=== PATIENT | female | born 1970 | race Caucasian/White ===

== ENCOUNTER 2019-07-31 08:08 | Emergency (ER) | payer BC, SELFPAY ==
--- NOTE | 2019-07-31 08:11 | W.ED.GENAD ---
Discharge Plan Disposition Patient Disposition: HOME Condition: Good Discharge Details Chief Complaint: Nk/Back Pain Clinical Impression: Muscle spasm, Back pain Primary Care Provider: Geno Harris ED Provider: Farheen Gutierrez Home Meds and New Rx's Prescriptions: New diazepam [Valium] 5 mg tablet 5 mg PO TID PRN (Reason: muscle spasm) Qty: 10 RF: 0 Continued loratadine 10 MG tablet 10 mg PO DAILY RF: 0 citalopram [Celexa] 40 mg tablet 60 mg PO DAILY Qty: 135 RF: 2 ibuprofen 400 MG tablet 600 mg PO Q4H PRN PRNRF: 0 Discharge Instructions Instructions: Muscle Spasm (ED), Back Pain (ED) Additional Instructions: Encourage water intake. Encourage gentle stretching and frequent walking. Continue with heat to help with discomfort. Please continue with [id number] patches such as Salonpas or Lidoderm patches. Please use 600 mg of ibuprofen and 1000 mg of Tylenol every 6 hours. You may augment this with the Valium as prescribed to help with muscle spasm. Do not take this medication while driving. Please follow-up with your primary care in the next few days for reevaluation. If you develop weakness, change in bowel or bladder habits, fevers, increased pain or other new/worsening symptoms please seek care urgently once again. Referrals: Geno Harris [Primary Care Provider] - Discharge Data Discharge Date/Time-TO BE ENTERED AT DEPARTURE: 07/31/19 09:15 Medical Decision Making Patient is a pleasant 49-year-old female presents today with chief complaint of right-sided back pain. She reports the pain began 4 days ago. She denies any inciting incident. No trauma. States the pain progressively increased. She has been trying to be more sedentary recently and has been using heating pads. She finds that pain is worse while sleeping and first thing in the morning. States that after being awake for several hours and using heating pad, the pain does start to subside. She denies any fevers or chills. Denies any altered sensation. Finds that rotations particularly to the right, increases pain. She denies any change in her bowel or bladder habits. Denies any fevers or chills. On exam, patient is resting comfortably. She has full rotation to the left, limited rotation to the right. She has palpable muscle spasm on the right side of her back. This is the area of discomfort. She has no midline tenderness. She has a normal neurologic exam. Negative straight leg raise bilaterally. Patient I discussed the findings. She has been being quite sedentary since the onset of discomfort which is likely contributing to her spasm. We did discuss this at length. Patient I discussed treatment options. In particular, advise a muscle relaxant. However, patient did drive herself here. I did offer to have been medicated here and have her obtain a ride home. However, patient would prefer to be discharged home with a prescription for muscle relaxer and will drive herself home. She will be given Tylenol, ibuprofen and a Lidoderm patch. I encouraged water intake. We discussed stretching techniques. Encouraged gentle range of motion and frequent ambulation. Encourage close follow-up with primary care. She was given strict return precautions. We did discuss using Valium safely. Do not drive will taking this medication. All of her questions and concerns were addressed and she is in agreement with this plan. [facility] General Mode of arrival: ambulatory. Date/Time Provider Initiated Documentation: 07/31/19 08:11. Limitations to Documentation: no limitations. Information obtained by: patient and RN notes reviewed. History of Present Illness 49 year old F presents to the emergency department with the chief complaint of right sided back pain, described as severe, with intensity rated at 10 (states pain is 4/10 when sedentary, 10/10 with movement). Quality is described as stabbing, and is localized to the back. Patient reports no radiation. Patient started experiencing this day(s) (4) and it has been constant. Immobilization improves symptom(s), (and heat) Movement worsens symptoms . Patient notes no other symptoms.. Patient did receive the following treatments prior to arrival, NSAID (400mg ibuprofen) Related Data Home Medications Medication Instructions Recorded Confirmed ibuprofen 600 mg PO Q4H PRN PRN 02/17/13 11/17/18 loratadine 10 mg PO DAILY tab-cap 08/06/15 11/17/18 citalopram 40 mg tablet 60 mg PO DAILY #135 tab 04/17/19 diazepam [Valium] 5 mg PO TID PRN #10 tab 07/31/19 Previous Rx's Medication Instructions Recorded citalopram 40 mg tablet 60 mg PO DAILY #135 tab 04/17/19 diazepam [Valium] 5 mg PO TID PRN #10 tab 07/31/19 Allergies Allergy/AdvReac Type Severity Reaction Status Date / Time No Known Drug Allergies Allergy Verified 07/31/19 08:16 Review of Systems Constitutional Constitutional: Reports as per HPI, Denies chills, Denies fatigue, Denies fever(s), Denies frequent falls and Denies headache(s) Eyes Eyes: Denies change in vision ENT Ears, Nose, Mouth, and Throat: Denies headache(s) Cardiovascular Cardiovascular: Denies chest pain, Denies dyspnea and Denies dyspnea on exertion Respiratory Respiratory: Denies cough, Denies dyspnea and Denies dyspnea on exertion Gastrointestinal Gastrointestinal: Denies abdominal pain, Denies change in bowel habits and Denies fecal incontinence Genitourinary Genitourinary: Reports as per HPI, Denies urinary incontinence and Denies urinary hesitancy Musculoskeletal Musculoskeletal: Reports as per HPI, Reports back pain, Denies muscle weakness, Denies numbness, Denies radiating pain into limb, Reports stiffness and Denies tingling Integumentary/Breasts Skin/Breast: Reports as per HPI and Denies rash Neurologic Neurologic: Reports as per HPI, Denies frequent falls, Denies headache(s), Denies focal weakness, Denies numbness, Denies radicular pain, Denies sensory deficit, Denies tingling and Denies paresthesias Endocrine Endocrine: Denies fatigue [facility] Medical History (Updated 07/31/19 @ 08:57 by KAYLEE Berrios) Anxiety (Chronic) Surgical History (Updated 03/30/18 @ 14:35 by [facility]) section Social History Smoking/Tobacco Use Status: Never Alcohol Intake: current Alcohol Intake frequency: a few times a month Drug use: Never Substance use type: does not use Do you feel safe at home: Yes Do you feel safe in your relationship?: Yes History History 2 Para 2 Hx # Term Pregnancies Multiple births Hx # Pregnancies Ectopic pregnancies AB induced Hx Number of Living Children AB spontaneous Exam Const General: cooperative, healthy appearing, uncomfortable, no acute distress, well developed and well groomed Nutritional Appearance: average body habitus and well nourished Orientation: alert and awake Eyes General: appearance normal, both eyes and all related structures Neck Neck: normal visual inspection, full ROM, no lymphadenopathy and no meningeal signs Resp Effort & Inspection: normal respiratory effort and able to speak in complete sentences Auscultation: clear to auscultation bilaterally, no rales, no rhonchi and no wheezes Cardio Rate: regular rate Rhythm: regular rhythm Heart Sounds: S1 normal and S2 normal Back/Spine/Pelvis Back: no CVA tenderness Cervical Spine: normal cervical lordosis, cervical ROM normal, No cervical spinal tenderness and No step off deformity Thoracic/Lumbar Spine: No thoraco-lumbar ROM normal (Full forward flexion. She is able to extend but has discomfort on the righ), straight leg raise negative bilaterally, No mass, No paraspinal tenderness, thoraco-lumbar ROM limited (With rotation to the right), thoraco-lumbar spasm, No thoracic spinal tenderness and No lumbar spinal tenderness Back/spine/pelvis image: 1. Area of palpable spasm Skin General skin exam: no rashes or lesions noted Neuro General: alert and awake Cognition: normal cognition Speech: speech normal Gait: normal gait Motor: muscle tone normal throughout, strength 5/5 throughout, no movement abnormalities noted and no fasciculations Sensory Exam: no sensory deficits noted (no saddle paresthesias) DTR's: Rt Patellar: 2+, Lt Patellar: 2+, Rt Ankle: 2+ and Lt Ankle: 2+ Extrem General: normal to inspection, full ROM, normal capillary refill, no joint enlargement, no pedal edema, no calf tenderness and normal gait Psych Appearance: grossly normal and well kempt Mental Status: mental status grossly normal Speech and Movement: speech and movement normal
[2019-07-31 08:14] VITALS: BP 132/91; PULSE 61; RESP 18; TEMP 36.4; O2SAT 100
[2019-07-31] MEDS: Lidocaine 5% Patch 1 PATCH TP (08:41)
[2019-07-31] MEDS: Ibuprofen 200 MG TAB PO (08:42)
[2019-07-31] MEDS: Acetaminophen 500 MG TAB 1000 MG PO (08:42)
== END 2019-07-31 09:15 | disposition home or self-care (01) ==
PROVIDERS: Emergency Provider Physician Assistant; PCP Nurse Practitioner Family
DX: M62.830 Muscle spasm of back (principal); M54.9 Dorsalgia, unspecified
CPT/HCPCS: 99283

== ENCOUNTER 2019-11-27 01:26 | Outpatient (CLI) | payer BC, SELFPAY ==
--- NOTE | 2019-11-27 15:30 | DI.MAMMO_ITS ---
EXAM: MAMMO SCREENING CLINICAL HISTORY: screening TECHNIQUE: Mammograms were interpreted according to the usual protocol including computer analysis w Shortlist CAD system, tomosynthesis and C-view imaging. COMPARISON: 2010 through 2016 FINDINGS: The breasts are composed of heterogeneously dense fibroglandular densities, Breast Density category C . Right breast: No suspicious masses or suspicious microcalcifications are seen. No skin thickening or abnormal axillary lymph nodes are seen. There has been no significant change from prior exams. Left breast: There is an ovoid circumscribed area of nodular asymmetry seen on the CC view in the darnell tral left breast not definitely seen previously. There are no suspicious calcifications or portal architect ural distortion. Spot compression views and ultrasound are requested for further evaluation. IMPRESSION: BI-RADS Category 0 - Assessment Incomplete: Need additional imaging evaluation Breast density category C, heterogeneously dense tissue which decreases the sensitivity of the mammog kobi. The mammogram demonstrates the patient's breast tissue is dense. Dense breast tissue is very common a nd is not abnormal but dense breast tissue can make it harder to find cancer on a mammogram. Also, de nse breast tissue may increase breast cancer risk. This information about the result of the mammogram report was provided to the patient to raise their awareness. Use this report when you speak with the patient about their risks for breast cancer, which includes their family history. At that time, you may recommend additional screening tests (Ultrasound or MRI) as they might be useful based on their r isk. A negative radiographic report should not delay biopsy if a dominant or clinically suspicious mass is present. Up to ten percent of cancers are not identified on mammography. A negative report may reinforce clinical impression. Adenosis and dense breasts may obscure an underlying neoplasm. False positive reports average 6 to 10%.
== END 2019-11-27 01:46 ==
PROVIDERS: PCP Nurse Practitioner Family; Visit Provider Nurse Practitioner Family
DX: Z12.31 Encounter for screening mammogram for malignant neoplasm of breast (principal); R92.8 Other abnormal and inconclusive findings on diagnostic imaging of breast
CPT/HCPCS: 77063; 77067

== ENCOUNTER 2019-12-01 03:03 | Outpatient (CLI) | payer BC, SELFPAY ==
--- NOTE | 2019-12-01 15:02 | DI.MAMMO_ITS ---
EXAM: MG MAMMO SCREEN CALL BACK UNI CLINICAL HISTORY: F/U ABNORMAL MAMMO, OVOID CIRCUMSCRIBED AREA OF NODULAR ASYMMETRY IN CENTRAL LEFT BREAST TECHNIQUE: Spot compression CC and MLO views with tomosynthesis were performed. COMPARISON: 2010 through November,. FINDINGS: Masses/Architectural Distortion: None seen. No suspicious area of nodularity persists. Microcalcifications: No suspicious pleomorphic-type are seen. Skin Thickening/Nipple Retraction: None. IMPRESSION: 1. No significant interval change with no specific features of malignancy noted. 2. Unless there is more urgent need, screening mammography is recommended, as per [employer] guidelines. BI-RADS Category 1 - Negative Breast Density - Category C - Heterogeneously dense The mammogram demonstrates the patient's breast tissue is dense. Dense breast tissue is very common a nd is not abnormal but dense breast tissue can make it harder to find cancer on a mammogram. Also, de nse breast tissue may increase their breast cancer risk. This information about the result of the [facility] mogram report was provided to the patient to raise their awareness. Use this report when you speak wi th the patient about their risks for breast cancer, which includes their family history. At that time , you may recommend for more screening tests (Ultrasound or MRI) as they might be useful based on the ir risk. A negative radiographic report should not delay biopsy if a dominant or clinically suspicious mass is present. Up to ten percent of cancers are not identified on mammography. A negative report may reinforce clinical impression. Adenosis and dense breasts may obscure an underlying neoplasm. False positive reports average 6 to 10%. Patient will receive a letter notifying them of these results.
--- NOTE | 2019-12-01 15:10 | DI.US_ITS ---
EXAM: US BREAST LT LIMITED CLINICAL HISTORY: OVOID CIRCUMSCRIBED AREA OF NODULAR ASYMMETRY IN CENTRAL LEFT BREAST TECHNIQUE: Ultrasound left breast performed using standard protocol. COMPARISON: No exams were available for comparison FINDINGS: No solid or cystic masses, hypoechoic foci, areas of abnormal shadowing, or areas of skin thickening. IMPRESSION: No sonographically suspicious finding. DATA REPOSITORY:
== END 2019-12-01 03:23 ==
PROVIDERS: PCP Nurse Practitioner Family; Visit Provider Nurse Practitioner Family
DX: N63.25 Unspecified lump in the left breast, overlapping quadrants (principal); Z12.31 Encounter for screening mammogram for malignant neoplasm of breast; R92.8 Other abnormal and inconclusive findings on diagnostic imaging of breast
CPT/HCPCS: 76642; 77063; 77067

== ENCOUNTER 2020-11-25 14:10 | Outpatient (REF) | payer BC, SELFPAY ==
--- NOTE | 2020-11-25 13:45 | PAPFT_PTH ---
PATIENT: Cleopatra Thornton LOC: [facility] U#:[id number] AGE/SX: 50/F ROOM: RE11/25/[address]: SHEEBA Harvey : 1970 BED: DIS: 11/25/2020 SPEC #: [id number] RECD: 11/25/20 17:53 STATUS: STEVE REQ #: [id number] PATRIC: 11/25/20 13:[address]: Karissa Ahmadi DEPT: [facility] Cytology RECD BY: Sridevi Cedillo ENTERED: 11/25/20 17:53 SP TYPE: PAPFT OTHR DR: Geno Harris Tissues: 1 - CX/ENDOCX FOR PAP SMEARS Procedures: PAP THIN PREP/UVM Screening HPV DNA PROBE Comments: [id number]
== END 2020-11-25 14:11 | disposition home or self-care (01) ==
LOC: LBN 14:10
PROVIDERS: PCP Nurse Practitioner Family; Visit Provider Nurse Practitioner Family
DX: Z12.4 Encounter for screening for malignant neoplasm of cervix (principal); Z11.51 Encounter for screening for human papillomavirus (HPV)
CPT/HCPCS: 88142; 87624

== ENCOUNTER 2020-12-09 01:57 | Outpatient (CLI) | payer BC, SELFPAY ==
--- NOTE | 2020-12-09 09:30 | DI.MAMMO_ITS ---
Exam(s) MAMMO SCREENING EXAM: MAMMO SCREENING CLINICAL HISTORY: screening, Z12.39. TECHNIQUE: Bilateral full field digital CC and MLO mammographic images were obtained with 3D tomosyn thesis and utilizing computer aided detection (CAD). COMPARISON: Prior mammograms dating back to 2013, the most recent being November 2019. Left breast ultrasound November 2019 was also reviewed. FINDINGS: The fibroglandular tissue is moderately dense, this decreasing the sensitivity of the mammogram for f inding hidden underlying lesions. No new significant radiograph findings in the right breast In the left breast there is a round noncalcified nodular density noted is located 4 cm in from the ni pple on the CC view. On 3D imaging this appears to be a possible lymph node and this probably explai ns why was not visualized on prior ultrasound examination of November 2019. This nodule measures approximately 9 by 6 millimeters There are no malignant-appearing microcalcification groups in this region nor elsewhere in either jesús ast. There is no significant architectural distortion nor skin thickening-retraction. IMPRESSION: No radiographic evidence of malignancy in the right breast. There is a 9 x 6 millimeter left breast nodule which may be a benign lymph node. Recommend spot comp ression view and repeat left breast ultra sound at this time. BI-RADS Category 0 - Assessment Incomplete: Need additional imaging evaluation Breast Density - Category C - Heterogeneously dense Breast density Category C or D implies that the patient has dense breast tissue. Dense breast tissue can make it harder to find cancer on a mammogram. Dense breast tissue is also associated with an incr eased risk of breast cancer. This information about the result of the mammogram report was provided to the patient to raise their awareness. Use this report when you speak with the patient about their risks for breast cancer, which includes their family history. At that time, you may recommend additional screening tests (Ultrasoun d or MRI) as these tests may add significant information. A negative radiographic report should not delay biopsy if a dominant or clinically suspicious mass is present. Up to ten percent of cancers are not identified on mammography. A negative report may reinforce clinical impression. Adenosis and dense breasts may obscure an underlying neoplasm. False positive reports average 6 to 10%. Patient will receive a letter notifying them of these results.
== END 2020-12-09 02:17 ==
PROVIDERS: PCP Nurse Practitioner Family; Visit Provider Nurse Practitioner Family
DX: Z12.31 Encounter for screening mammogram for malignant neoplasm of breast (principal); N63.20 Unspecified lump in the left breast, unspecified quadrant
CPT/HCPCS: 77063; 77067

== ENCOUNTER 2020-12-25 02:04 | Outpatient (CLI) | payer BC, SELFPAY ==
--- NOTE | 2020-12-25 | DI.US_ITS ---
Exam(s) US BREAST LT COMPLETE EXAM: US BREAST LT COMPLETE CLINICAL HISTORY: F/U MAMMO, LT BREAST NODULE, ? LYMPH NODE. TECHNIQUE: Complete ultrasound of the left breast was performed including all 4 quadrants, the retro areolar region, and the ipsilateral axilla. COMPARISON: Prior mammograms were reviewed. Today's additional spot compression mammographic view of the left breast was also performed FINDINGS: There are 2 findings evident in the left breast on today's ultrasound. For sleep, date 1 o'clock position there is a 9 x 4 millimeter than taller slightly lobulated nodule with neutral through transmission have the appearance of a probable small fibroadenoma. Second finding has similar appearance and is located at the 5 o'clock position, measuring 8 x 3 melissa meters, also wider than taller and exhibiting slightly increased through transmission. No worrisome d ecreased through transmission. No other focal ultrasound findings in all 4 quadrants nor in the retroareolar region. In the left axilla there benign appearing lymph nodes noted. 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 One of these may correspond to the finding on the mammogram. The other possibility is that these are not seen on mammogram and that the finding on the mammogram is a benign should mammary lymph node (wh ich is often not able to be seen on ultrasound). Nevertheless, we are most probably dealing with benign findings here. Appropriate follow-up is repeat breast imaging in 6 months time, this to include repeat left breast d iagnostic mammogram and repeat ultrasound. At that time I recommend that she undergo ultrasound of gildardo th breasts given that fibroadenomas tend to be multiple and bilateral. BI-RADS Category 3 - 6 month - Probably Benign Finding: Recommend follow-up mammography in 6 months Breast Density - Category C - Heterogeneously dense Breast density Category C or D implies that the patient has dense breast tissue. Dense breast tissue can make it harder to find cancer on a mammogram. Dense breast tissue is also associated with an incr eased risk of breast cancer. This information about the result of the mammogram report was provided to the patient to raise their awareness. Use this report when you speak with the patient about their risks for breast cancer, which includes their family history. At that time, you may recommend additional screening tests (Ultrasoun d or MRI) as these tests may add significant information. A negative radiographic report should not delay biopsy if a dominant or clinically suspicious mass is present. Up to ten percent of cancers are not identified on mammography. A negative report may reinforce clinical impression. Adenosis and dense breasts may obscure an underlying neoplasm. False positive reports average 6 to 10%. Patient will receive a letter notifying them of these results.
--- NOTE | 2020-12-25 | DI.MAMMO_ITS ---
Exam(s) MG MAMMO SCREEN CALL BACK UNI EXAM: MG MAMMO SCREEN CALL BACK UNI LEFT AND COMPLETE LEFT BREAST ULTRASOUND CLINICAL HISTORY: F/U MAMMO, LT BREAST NODULAR DENSITY, ? LYMPH NODE. TECHNIQUE: Unilateral spot mammographic images were obtained with 3D tomosynthesis and utilizing com puter aided detection (CAD). . LEFT breast Ultrasound was also performed. We performed complete left breast ultrasound including all 4 quadrants as well as the retroareolar region and left axilla. COMPARISON: Prior mammograms were reviewed. This additional imaging was performed due to findings described on the recent screening mammogram of 12/09/2020. FINDINGS: Additional mammographic view performed today over the recently described nodule is equivocal..Therefo re we proceeded with left breast ultrasound. See separate ultrasound report. IMPRESSION: See separate ultrasound report Appropriate follow-up is repeat breast imaging in 6 months, this to include repeat left breast diagno stic mammogram and breast ultrasound. At that time the ultrasound examination should be a bilateral s tudy, for reasons described on the ultrasound report.. Findings are recommendations were discussed by myself with the patient today. BI-RADS Category 3 - 6 month - Probably Benign Finding: Recommend follow-up mammography in 6 months Breast Density - Category C - Heterogeneously dense Breast density Category C or D implies that the patient has dense breast tissue. Dense breast tissue can make it harder to find cancer on a mammogram. Dense breast tissue is also associated with an incr eased risk of breast cancer. This information about the result of the mammogram report was provided to the patient to raise their awareness. Use this report when you speak with the patient about their risks for breast cancer, which includes their family history. At that time, you may recommend additional screening tests (Ultrasoun d or MRI) as these tests may add significant information. A negative radiographic report should not delay biopsy if a dominant or clinically suspicious mass is present. Up to ten percent of cancers are not identified on mammography. A negative report may reinforce clinical impression. Adenosis and dense breasts may obscure an underlying neoplasm. False positive reports average 6 to 10%. Patient will receive a letter notifying them of these results.
== END 2020-12-25 02:24 ==
PROVIDERS: PCP Nurse Practitioner Family; Visit Provider Nurse Practitioner Family
DX: Z12.31 Encounter for screening mammogram for malignant neoplasm of breast (principal); R92.8 Other abnormal and inconclusive findings on diagnostic imaging of breast; N63.21 Unspecified lump in the left breast, upper outer quadrant
CPT/HCPCS: 76642; 77063; 77067

== ENCOUNTER 2021-01-03 09:44 | Emergency (ER) | payer BC, SELFPAY ==
[2021-01-03 09:48] VITALS: BP 140/99; PULSE 64; RESP 18; TEMP 36.4; O2SAT 100
--- NOTE | 2021-01-03 10:05 | W.ED.GENAD ---
Discharge Plan Disposition Patient Disposition: HOME Condition: Good Discharge Details Clinical Impression: Injury of knee, right Primary Care Provider: Geno Harris ED Provider: Sridevi Olmstead Home Meds and New Rx's Prescriptions: New diclofenac sodium 3 % gel 1 applic topical BID Qty: 100 RF: 0 Continued citalopram [Celexa] 40 mg tablet 60 mg PO DAILY Qty: 135 RF: 3 estradiol [Vagifem] 10 mcg tablet 10 mcg vaginal DAILY 14 Days Qty: 24 RF: 4 loratadine 10 MG tablet 10 mg PO DAILY RF: 0 ibuprofen 400 MG tablet 600 mg PO Q4H PRN PRNRF: 0 diazepam [Valium] 5 mg tablet 5 mg PO TID PRN (Reason: muscle spasm) Qty: 10 RF: 0 Discharge Instructions Additional Instructions: Please follow-up with your PCP in 1 week for reevaluation and orthopedic thereafter if you have persistent pain The calf pain or swelling, significant swelling to your knee, worsening discomfort, I recommend reevaluation Ibuprofen 600 mg every 8 hours with food for no more than 5 days as needed for pain Tylenol 650 mg every 4-6 hours as needed for discomfort Diclofenac gel topically Blood pressure recheck by primary care physician Hinged knee brace while awake Medical Decision Making Patient supplied with knee brace Ambulatory with antalgic steady gait Crutches in room Return precautions discussed and patient expressed understanding, I did not order an x-ray as there is no direct trauma to the affected knee obvious effusion No clinical evidence of DVT, neurovascularly intact Return precautions discussed and patient expressed understanding, referral to orthopedics back to primary care physician Mildly ibuprofen and Tylenol, diclofenac gel supplied Medical Records Medical records reviewed: Yes I reviewed the patient's medical records. HPI General Mode of arrival: ambulatory. Date/Time Provider Initiated Documentation: 01/03/21 09:45. Limitations to Documentation: no limitations. Information obtained by: patient. HPI Narrative: This 50-year-old female presents for right knee injury. She states she was holding a laundry basket, turned quickly and felt pain in her medial knee. She states that she has pain with flexion abducting. She denies any sensation changes. She denies any calf pain or swelling. Related Data Home Medications Medication Instructions Recorded Confirmed ibuprofen 600 mg PO Q4H PRN PRN 02/17/13 01/03/21 loratadine 10 mg PO DAILY tab-cap 08/06/15 01/03/21 diazepam [Valium] 5 mg PO TID PRN #10 tab 07/31/19 citalopram 40 mg tablet 60 mg PO DAILY #135 tab 11/25/20 01/03/21 estradiol 10 mcg vaginal tablet 10 mcg VAGINAL DAILY 14 Days #24 11/25/20 01/03/21 tab diclofenac sodium 1 applic TOPICAL BID #100 g 01/03/21 Previous Rx's Medication Instructions Recorded diazepam [Valium] 5 mg PO TID PRN #10 tab 07/31/19 citalopram 40 mg tablet 60 mg PO DAILY #135 tab 11/25/20 estradiol 10 mcg vaginal tablet 10 mcg VAGINAL DAILY 14 Days #24 11/25/20 tab diclofenac sodium 1 applic TOPICAL BID #100 g 01/03/21 Allergies Allergy/AdvReac Type Severity Reaction Status Date / Time No Known Drug Allergies Allergy Verified 01/03/21 09:52 General Stated Complaint: Orthopedic TONYA: 4 Review of Systems Narrative: Review of systems obtained x3 and negative aside from indication in HPI [facility] Medical History (Updated 01/03/21 @ 10:12 by KAYLEE Brown) Anxiety Surgical History (Updated 03/30/18 @ 14:35 by [employer] [place]) section Family History Mother Hyperlipidemia Father Hyperlipidemia Maternal Aunt Colon cancer Social History Smoking/Tobacco Use Status: Never Smoking risk assessment performed?: Yes Alcohol Intake: current Alcohol Intake frequency: a few times a month Drug use: Never Substance use type: does not use Do you feel safe at home: Yes Do you feel safe in your relationship?: Yes History History 2 Para 2 Hx # Term Pregnancies Multiple births Hx # Pregnancies Ectopic pregnancies AB induced Hx Number of Living Children AB spontaneous Exam Const General: healthy appearing Resp Effort & Inspection: normal respiratory effort Cardio Rate: regular rate Extrem Other: Right knee pain, medial, positive Kezia, no obvious effusion, no calf tenderness, distal pulses intact, sensation intact distally, no tenderness to ankle or right hip on the affected side Course Vital Signs Vital signs: Vital Signs Temperature 36.4 C L 01/03/21 09:48 Pulse 64 01/03/21 09:48 Respiratory Rate 18 01/03/21 09:48 Blood Pressure 140/99 H 01/03/21 09:48 Pulse Oximetry 100 01/03/21 09:48 Temperature 36.4 C L 01/03/21 09:48 Temperature Source Temporal Artery Scan 01/03/21 09:48 Pulse 64 01/03/21 09:48 Respiratory Rate 18 01/03/21 09:48 Respiratory Effort Non-Labored 01/03/21 09:54 Blood Pressure 140/99 H 01/03/21 09:48 Blood Pressure Position Sitting 01/03/21 09:48 Pulse Oximetry 100 01/03/21 09:48 Oxygen Delivery Method Room Air 01/03/21 09:48 Oxygen Flow Rate 0 01/03/21 09:48 Pain Level 0 01/03/21 09:48 Comment 01/03/21 09:48
== END 2021-01-03 10:23 | disposition home or self-care (01) ==
PROVIDERS: Emergency Provider Physician Assistant; PCP Nurse Practitioner Family
DX: S89.81XA Other specified injuries of right lower leg, initial encounter (principal); X50.9XXA Other and unspecified overexertion or strenuous movements or postures, initial encounter
CPT/HCPCS: 29505; 99283

== ENCOUNTER 2021-01-13 13:54 | Outpatient (CLI) | payer BC, SELFPAY ==
--- NOTE | 2021-01-13 11:00 | DI.RAD_ITS ---
Exam(s) XR KNEE RT 3V AP,LAT,CASSIDY EXAM: XR KNEE RT 3V AP,LAT,CASSIDY CLINICAL HISTORY: right knee injury. TECHNIQUE: 2D digital imaging was performed. COMPARISON: No exams were available for comparison FINDINGS: A small joint effusion. No narrowing of the joint compartments. However, on the sunrise view there are 2 small calcific densities seen in the medial aspect of the patellofemoral compartment. Bone den sity is normal. No osseous. IMPRESSION: There are 2 small calcific densities adjacent to each other behind the medial aspect of the patella. There is no patellar displacement evident. DATA REPOSITORY: RADIATION DOSE DELIVERED:
== END 2021-01-13 13:55 | disposition home or self-care (01) ==
LOC: DIORS 13:54
PROVIDERS: PCP Nurse Practitioner Family; Referring Provider Nurse Practitioner Family; Visit Provider Physician Assistant
DX: S89.91XA Unspecified injury of right lower leg, initial encounter (principal); M85.861 Other specified disorders of bone density and structure, right lower leg; X58.XXXA Exposure to other specified factors, initial encounter
CPT/HCPCS: 73562

== ENCOUNTER 2021-06-23 01:47 | Outpatient (CLI) | payer BC, SELFPAY ==
--- NOTE | 2021-06-23 08:30 | DI.US_ITS ---
Exam(s) US BREAST LT COMPLETE MG MAMMO DIAGNOSTIC UNI US BREAST RT COMPLETE EXAM: MG MAMMO DIAGNOSTIC UNI CLINICAL HISTORY: 6 mo f/u,r92.8. TECHNIQUE: Craniocaudal and mediolateral oblique Full Field Digital Mammography views of the left br east with Computer Aided Diagnosis followed by Tomosynthesis and bilateral breast ultrasound. COMPARISON: MG Screening Bilat Mammo from 10/06/2016 MG MG MAMMO SCREENING from 11/27/2019 MG MG MAMMO SCREEN CALL BACK UNI from 12/01/2019 MG MG MAMMO SCREENING from 12/09/2020 MG MG MAMMO SCREEN CALL BACK UNI from 12/25/2020 US US BREAST LT COMPLETE from 12/25/2020 US US BREAST RT COMPLETE from 06/23/2021 US US BREAST LT COMPLETE from 06/23/2021 FINDINGS: Left mammography/Tomosynthesis: Masses/Architectural Distortion: Stable circumscribed nodule superior central left breast.. Microcalcifictions: No suspicious pleomorphic-type are seen. Skin Thickening/Nipple Retraction: None. Right breast US: Echotexture: Normal appearance of the glandular tissue. Shadowing: No suspicious foci. Cyst: None. Solid lesions: None seen. Ductal dilation: None. Left breast ultrasound: Stable appearance circumscribed hypoechoic nodule 1 o'clock position 5 cm fro m nipple measuring 9 x 3 x 8 millimeters. Stable hypoechoic circumscribed nodule in the 5 o'clock po sition 3 cm from the nipple measuring 7 x 3 x 7 millimeters. No new or suspicious masses. IMPRESSION: 1. No evidence of malignancy is noted. Stable benign appearing nodules in the left breast, likely fib roadenomas. 2. Unless there is more urgent need, follow-up screening mammography is recommended, return to bilate ral screening in 6 months. BI-RADS Category 2 - Benign Findings Breast Density - Category C - Heterogeneously dense Breast density category C or D implies that the patient has dense breast tissue. Dense breast tissue is very common and is not abnormal but dense breast tissue can make it harder to find cancer on a ma mmogram. Also, dense breast tissue may increase their breast cancer risk. This information about the result of the mammogram report was provided to the patient to raise their awareness. Use this report when you speak with the patient about their risks for breast cancer, which includes their family hist ory. At that time, you may recommend for more screening tests (Ultrasound or MRI) as they might be us eful based on their risk. A negative radiographic report should not delay biopsy if a dominant or clinically suspicious mass is present. Up to ten percent of cancers are not identified on mammography. A negative report may reinforce clinical impression. Adenosis and dense breasts may obscure an underlying neoplasm. False positive reports average 6 to 10%. Patient will receive a letter notifying them of these results.
== END 2021-06-23 02:07 ==
PROVIDERS: PCP Nurse Practitioner Family; Visit Provider Nurse Practitioner Family
DX: R92.8 Other abnormal and inconclusive findings on diagnostic imaging of breast (principal); Z12.31 Encounter for screening mammogram for malignant neoplasm of breast; N63.21 Unspecified lump in the left breast, upper outer quadrant
CPT/HCPCS: 76642; 77061; 77065; G0279

== ENCOUNTER → 2022-02-23 02:33 | Outpatient (CLI) | payer BC, SELFPAY ==
--- NOTE | 2022-02-23 12:56 | DI.MAMMO_ITS ---
Exam(s) MAMMO SCREENING EXAM: MAMMO SCREENING CLINICAL HISTORY: screening. TECHNIQUE: Bilateral full field digital CC and MLO mammographic images were obtained with 3D tomosyn thesis and utilizing computer aided detection (CAD). COMPARISON: Prior mammograms were reviewed, the most recent being 1020 and June 2021. Ultrasound examinations of December 2020 and June 2021 were reviewed.. FINDINGS: There has no significant change in the appearance distribution of fibroglandular tissue which is mode rately dense. There are no new obvious spiculated masses nor malignant-appearing microcalcification in either breas t. No significant architectural distortion or skin thickening-traction. There are no new spiculated masses nor malignant appearing microcalcification groups. There is no significant architectural distortion nor skin thickening-retraction. IMPRESSION: No radiographic evidence of malignancy. I note that prior ultrasound examinations of the left breast revealed nodular densities-probable fibr oadenomas at the 3 o'clock and 6 o'clock positions which were evident on the December 2020 and July 03 studies. Recommend follow-up ultrasound in 6 months to ensure stability of the left breast findin gs which are somewhat hidden subjacent to the fibroglandular tissue on the mammogram. BI-RADS Category 3 - 6 month - Probably Benign Finding: Recommend follow-up mammography in 6 months Breast Density - Category B - Scattered areas of fibroglandular density Breast density Category C or D implies that the patient has dense breast tissue. Dense breast tissue can make it harder to find cancer on a mammogram. Dense breast tissue is also associated with an incr eased risk of breast cancer. This information about the result of the mammogram report was provided to the patient to raise their awareness. Use this report when you speak with the patient about their risks for breast cancer, which includes their family history. At that time, you may recommend additional screening tests (Ultrasoun d or MRI) as these tests may add significant information. A negative radiographic report should not delay biopsy if a dominant or clinically suspicious mass is present. Up to ten percent of cancers are not identified on mammography. A negative report may reinforce clinical impression. Adenosis and dense breasts may obscure an underlying neoplasm. False positive reports average 6 to 10%. Patient will receive a letter notifying them of these results.
== END ==
PROVIDERS: PCP Nurse Practitioner Family; Visit Provider Nurse Practitioner Family
DX: Z12.31 Encounter for screening mammogram for malignant neoplasm of breast (principal)
CPT/HCPCS: 77063; 77067

== ENCOUNTER 2022-06-27 17:26 | Emergency (ER) | payer BC, SELFPAY ==
--- NOTE | 2022-06-27 17:15 | RT.EKG_ITS ---
APPROVED REPORT Exam: Resting ECG Reason for Exam: CHEST PAIN Patient Location: E HR:65 bpm ECG Measurements Heart Rate 65 AXIS MD 120 P 29 QRSd 84 QRS 83 QT 438 T 50 QTc 457 Conclusion Sinus rhythm...normal P axis, V-rate 60- 99 Low voltage, extremity leads...all extremity leads <0.5mV sinus rhythm, normal axis, normal intervals, t wave inversion V3
[2022-06-27 17:28] VITALS: BP 160/96; PULSE 69; RESP 18; TEMP 36.8; O2SAT 97
--- NOTE | 2022-06-27 18:08 | DI.RAD_ITS ---
Exam(s) XR CHEST 2V PA LATERAL EXAM: XR CHEST 2V PA LATERAL CLINICAL HISTORY: chest pain TECHNIQUE: 2D digital imaging was performed of the chest. Two images were obtained. PA and lateral views were obtained. COMPARISON: CR LEFT RIBS TO INCLUDE CXR from 04/05/2016 FINDINGS: MEDIASTINUM: Normal. HEART: Normal. PULMONARY VASCULATURE: Normal. LUNGS: Clear. PLEURAL SPACE: No pleural effusion or pneumothorax. BONE:Within normal limits for the patient's age. OTHER FINDINGS:Normal. IMPRESSION: No acute pulmonary findings. DATA REPOSITORY: RADIATION DOSE DELIVERED:
[2022-06-27] MEDS: Aspirin 81 MG CHEW 324 MG CH (18:34)
[2022-06-27 18:35] LABS: Abs Immature Grans 0.02 10^3/uL (0.0-0.06); Absolute Basophil Count 0.07 10^3/uL (0.0-0.2); Absolute Eosinophil Count 0.29 10^3/uL (0.0-0.7); Absolute Lymphocyte Count 3.01 10^3/uL (1.2-3.4); Absolute Monocyte Count 0.59 10^3/uL (0.1-0.8); Absolute Neutrophil Count 6.52 10^3/uL (1.2-6.7); Basophils % 0.7; Eosinophils % 2.8; HGB 12.6 g/dL (11.2-15.7); Immature Grans % 0.2; Lymphocytes % 28.7; MCH 27.3 pg (27.0-33.0); MCHC 32.3 % (32.0-36.0); MCV 84 fL (80-95); MPV 9.3 fL (8.0-11.0); Monocytes % 5.6; Platelet Count 389 10^3/uL (130-400); RBC 4.62 10^6/uL (3.93-5.22); RDW 13.6 % (11.7-14.6); RDW-SD 42.1 fL
--- NOTE | 2022-06-27 18:35 | DI.VRAD_ITS ---
PROCEDURE INFORMATION: Exam: XR Chest Exam date and time: 06/27/2022 6:22 PM Age: 52 years old Clinical indication: Other: Unspecified; Patient HX: Chest pain TECHNIQUE: Imaging protocol: Radiologic exam of the chest. Views: 2 views. COMPARISON: CR LEFT RIBS TO INCLUDE CXR 04/05/2016 12:36 PM FINDINGS: Lungs: [id number] bilateral hyperinflation which is stable since prior study dated 2015. Significance uncertain. This could reflect an underlying process such as emphysema or COPD. Air trapping from upper respiratory infection or reactive airway disease should also be considered. No peripheral infiltrates or edema. Pleural spaces: Unremarkable. No pleural effusion. No pneumothorax. Heart/Mediastinum: Unremarkable. No cardiomegaly. Bones/joints: Thoracic spine degenerative change. IMPRESSION: 1. Bilateral [id number] hyperinflation. 2. No infiltrates or edema. 3. No pleural effusion. Dictated and Authenticated by: Aftab Hodges MD. Ordering:AUSTIN Arana MD
--- NOTE | 2022-06-27 18:47 | ED.GENADUL_ITS ---
Discharge Plan Disposition Patient Disposition: Home Condition: Improving Discharge Details Chief Complaint: Chest Pain Clinical Impression: Chest pain Primary Care Provider: Geno Harris ED Provider: Sumit Munoz Home Meds and New Rx's Prescriptions: No Action melatonin 5 mg capsule 5 mg PO DAILY PRN citalopram 40 mg tablet 60 mg PO DAILY Qty: 135 3RF loratadine 10 MG tablet 5 mg PO DAILY ibuprofen 400 MG tablet 600 mg PO Q4H PRN PRN Discharge Instructions Instructions: Chest Pain (ED) Additional Instructions: Please follow-up with your primary care physician. Medical Decision Making 52-year-old female presents with anterior chest pain while moving furniture around 1 PM this afternoon, now resolved. Nonradiating. No nausea or vomiting. No respiratory distress. Denies leg swelling or pain. Denies history of thromboembolic disease or risk factors. No history of coronary disease. Nontoxic hemodynamically stable EKG nonischemic. Consider musculoskeletal chest pain versus costochondritis versus pleurisy versus must consider ACS however less likely given exam risk factors and current symptomatology, lower suspicion for PE or aortic pathology. Will obtain screening labs troponin chest x-ray will administer aspirin. Disposition likely home with close follow-up pending results 19: 16 patient resting comfortably no acute distress. Chest pain-free. Labs and imaging unremarkable. Patient follow-up with primary care physician. HPI General Date/Time Provider Initiated Documentation: 06/27/22 18:04 . HPI Narrative: 52-year-old female presents with anterior chest pain while moving furniture around 1 PM this afternoon. Brief in nature nonradiating. Denies shortness of breath leg swelling or current symptoms. No history of coronary disease, no history of thromboembolic disease; no exogenous estrogen use. No current chest pain. Related Data Home Medications Medication Instructions Recorded Confirmed ibuprofen 400 mg tablet 600 mg PO Q4H PRN PRN 02/17/13 06/27/22 loratadine 10 mg tablet 5 mg PO DAILY 08/06/15 06/27/22 citalopram 40 mg tablet 60 mg PO DAILY #135 tabs 01/20/22 06/27/22 melatonin 5 mg capsule 5 mg PO DAILY PRN 01/20/22 06/27/22 Previous Rx's Medication Instructions Recorded citalopram 40 mg tablet 60 mg PO DAILY #135 tabs 01/20/22 Allergies Allergy/AdvReac Type Severity Reaction Status Date / Time No Known Drug Allergies Allergy Verified 06/27/22 17:37 General Stated Complaint: Chest Pain TONYA: 3 Review of Systems Narrative: Review of Systems Constitutional: negative Eyes: negative ENT: negative Cardiovascular: Chest pain Respiratory: negative Gastrointestinal: negative : negative Musculoskeletal: negative Skin: negative Neurologic: negative Psych: negative PFSH All Active Problems (Updated 06/27/22 @ 19:17 by Sumit Munoz MD) Chest pain (Acute) Muscle spasm (Acute) Back pain (Acute) Injury of knee, right (Acute 01/02/21) Anxiety (Chronic) Surgical History (Updated 03/30/18 @ 14:35 by [employer] [place]) section Family History Mother Hyperlipidemia Father Hyperlipidemia Maternal Aunt Colon cancer Social History Smoking/Tobacco Use Status: Never Smoking risk assessment performed?: Yes Alcohol Intake: current Alcohol Intake frequency: a few times a month Drug use: Never Substance use type: does not use Do you feel safe at home: Yes Do you feel safe in your relationship?: Yes History History 2 Para 2 Hx # Term Pregnancies Multiple births Hx # Pregnancies Ectopic pregnancies AB induced Hx Number of Living Children AB spontaneous Exam Narrative Exam Narrative: Physical Examination General: alert, awake, cooperative, resting comfortably, no acute distress HEENT: normocephalic, atraumatic; PERRL, EOM intact, conjunctiva normal; no nasal discharge; moist mucous membranes, oral and pharyngeal mucosa normal, tolerating secretions Neck: supple, trachea midline; full ROM Chest: normal to inspection Respiratory: normal respiratory effort, speaking in full sentences, clear to auscultation, no wheezing, rales or rhonchi Cardiac: regular rate, regular rhythm, S1S2 intact, no murmurs rubs or gallops GI: abdomen soft, non-tender, non-distended; no palpable mass or hepatosplenomegaly Skin: no lesions, rashes or trauma appreciated Neuro: AAOx3, normal speech, moving all extremities Psych: Appropriate mood and affect Course Vital Signs Vital signs: Vital Signs Temperature 36.8 C 06/27/22 17:28 Pulse 69 06/27/22 17:28 Respiratory Rate 18 06/27/22 17:28 Blood Pressure 160/96 H 06/27/22 17:28 Pulse Oximetry 97 01/14/23 17:28 Temperature 36.8 C 06/27/22 17:28 Temperature Source Temporal Artery Scan 06/27/22 17:28 Pulse 69 06/27/22 17:28 Respiratory Rate 18 06/27/22 17:28 Respiratory Effort 06/27/22 17:32 Respiratory Depth Normal 06/27/22 17:32 Respiratory Pattern Normal 06/27/22 17:32 Blood Pressure 160/96 H 06/27/22 17:28 Blood Pressure Position Sitting 06/27/22 17:28 Pulse Oximetry 97 06/27/22 17:28 Oxygen Delivery Method Room Air 06/27/22 17:28 Oxygen Flow Rate 0 06/27/22 17:28 Pain Level 0 06/27/22 17:32 Lab/Test Results Lab/Test Results: Laboratory Tests Range/Units 06/27/22 18:30 WBC (4.4-10.8) 10^3/uL 10.50 RBC (3.93-5.22) 10^6/uL 4.62 Hgb (11.2-15.7) g/dL 12.6 Hct (36.0-46.0) % 39.0 MCV (80-95) fL 84 MCH (27.0-33.0) pg 27.3 MCHC (32.0-36.0) % 32.3 RDW (11.7-14.6) % 13.6 Plt Count (130-400) 10^3/uL 389 MPV (8.0-11.0) fL 9.3 Immature Gran % 0.2 Neutrophils % 62.0 Lymphocytes % 28.7 Monocytes % 5.6 Eosinophils % 2.8 Basophils % 0.7 Nucleated RBC % (0.0-0.3) % 0.0 Absolute Neutrophils (1.2-6.7) 10^3/uL 6.52 Absolute Lymphocytes (1.2-3.4) 10^3/uL 3.01 Absolute Monocytes (0.1-0.8) 10^3/uL 0.59 Absolute Eosinophils (0.0-0.7) 10^3/uL 0.29 Absolute Basophils (0.0-0.2) 10^3/uL 0.07
[2022-06-27 18:54] LABS: ALT 27 U/L (14-59); AST 21 U/L (15-37); Albumin 4.5 g/dL (3.4-5.0); Alkaline Phosphatase 68 U/L (46-116); Anion Gap 10.8 mmol/L (3-11); BUN 9 mg/dL (7-18); Bilirubin, Total 0.3 mg/dL (0.2-1.0); CO2 26.2 mmol/L (21.0-32.0); CREATININE 0.8 mg/dL (0.55-1.02); Calcium 9.2 mg/dL (8.5-10.1); Chloride 101 mmol/L (98-107); Glucose 95 mg/dL (74-106); Potassium 3.6 mmol/L (3.5-5.1); Sodium 138 mmol/L (136-145); Troponin I < 50 ng/L (<or=60)
[2022-06-27 19:21] VITALS: BP 152/88; PULSE 70; RESP 18; O2SAT 98
== END 2022-06-27 19:24 | disposition home or self-care (01) ==
PROVIDERS: Emergency Provider Emergency Medicine; PCP Nurse Practitioner Family
DX: R07.89 Other chest pain (principal)
CPT/HCPCS: 80053; 93005; 99284; 71046; 84484; 85025; 93010; 99285

== ENCOUNTER 2022-07-03 11:08 | Outpatient (REF) | payer BC, SELFPAY ==
[2022-07-03 14:33] LABS: Calculated LDL 173 mg/dL (<100); Cholesterol 291 mg/dL (<200); HDL Cholesterol 106 mg/dL (40-60); TSH (W/Ref FT4) 0.99 uIU/mL (0.36-3.74); Triglyceride 60 mg/dL (<150)
== END 2022-07-03 11:09 | disposition home or self-care (01) ==
LOC: NCHCN 11:08
PROVIDERS: PCP Nurse Practitioner Family; Visit Provider Nurse Practitioner Family
DX: F41.8 Other specified anxiety disorders (principal); F43.23 Adjustment disorder with mixed anxiety and depressed mood; R07.89 Other chest pain
CPT/HCPCS: 80061; 84443

== ENCOUNTER 2022-07-13 01:13 | Outpatient (CLI) | payer BC, SELFPAY ==
--- NOTE | 2022-07-13 | ETT_ITS ---
APPROVED REPORT Exam: Exercise Treadmill Patient Location: Out-Patient Room/Bed: Stress Nurse: Chloe Velazco RN Ordering Provider:HIRAL OSULLIVAN, Contact Number: [phone] BMI: 29.17 Baseline Rhythm: Sinus Rhythm Indications: CHEST DISCOMFORT Medical History Medical History: Chest pain, Anxiety, Family Stress, Grief Cardiac Medications: None Allergies: No known drug allergies Cardiac Risk Factors: FHX of CAD, Obesity Previous Cardiac Procedures: None Pretest Chest Pain Characteristics: No chest pain Exercise History: Indeterminate Physical Disabilities: None Lung Sounds: Clear to auscultation Heart Sounds: Regular Stress Test Details Test: Exercise stress testing was performed using a Jon protocol. Rest Stress HR Resting HR Supine: 68 bpm Max Heart Rate (APMHR): 168 bpm Resting HR Standin bpm Target HR (85% APMHR): 143 bpm Max HR Achieved: 171 bpm % of APMHR: 102 Recovery HR: 95 bpm HR response to stress: Normal HR response to stress BP Resting BP Supine: 122/78 mmHg Resting BP Standin/82 mmHg Max BP: 162/82 mmHg Recovery BP: 120/72 mmHg BP response to stress: Normal blood pressure response to stress. ECG Resting ECG: Sinus Rhythm Ectopy: None Comment: short MD interval, T wave inversion in leads aVL and V2 Stress ECG: Sinus Tachycardia ST Change: No significant ST segment changes noted Arrhythmia: rare PVC Recovery ECG: Sinus Rhythm Recovery ST Change: No significant ST segment changes noted Recovery Arrhythmia: occasional PACs Clinical Reason for Termination: Fatigue, Dyspnea Stress Symptoms: Leg Fatigue, Dyspnea Exercise duration: 6 min27 sec Highest Stage Reached: Stage 3: 3.4 mph at 14% grade. Exercise capacity: 7.74 METs Ascencio Treadmill Score: 5.3 Rate Pressure Product: [id number] Stress ECG Conclusion 1. Resting electrocardiogram showed right axis deviation 2. Patient exercised on the Jon protocol and completed a workload of 7.74 METS 3. Normal heart rate and blood pressure response to exercise. Patient achieved greater than 100% of predicted heart rate for age 4. There was no electrocardiographic evidence of myocardial ischemia 5. There were no significant dysrhythmias Ascencio Treadmill Score is 5.3 which is Low risk. Stress Test Summary STAGE Time (mins) Speed (mph) Grade (%) HR BP SpO2 SYMPTOMS METS Supine 68 122/78 96 Standing 77 120/82 1 3 1.7 10 148 148/92 96 4.5 2 6 2.5 12 167 160/88 96 7 1 min recovery 130 162/88 98 3 min recovery 103 132/78 6 min recovery 95 120/72
== END 2022-07-13 01:33 ==
PROVIDERS: PCP Nurse Practitioner Family; Visit Provider Nurse Practitioner Family
DX: R07.9 Chest pain, unspecified (principal)
CPT/HCPCS: 93017

== ENCOUNTER 2022-07-16 08:19 | Outpatient (RCR) | payer BC, SELFPAY ==
--- NOTE | 2022-07-16 08:15 | HOLTER_ITS ---
APPROVED REPORT Conclusion This is a 48-hour Holter monitor reportedly ordered for chest pain Rhythm throughout was sinus with an heart rate on average of 71. Minimum was 58, maximum 112 There were very rare isolated premature ventricular contractions There were very rare isolated atrial premature beats There was no atrial fibrillation, no high-grade AV block, no pauses greater than 3 seconds
== END 2022-08-11 23:59 | disposition home or self-care (01) ==
LOC: CARDOPNVT 08:19
PROVIDERS: PCP Nurse Practitioner Family; Visit Provider Nurse Practitioner Family
DX: R07.9 Chest pain, unspecified (principal)
CPT/HCPCS: 93225; 93226

== ENCOUNTER 2022-12-20 11:45 | Emergency (ER) | payer BC, SELFPAY ==
--- NOTE | 2022-12-20 11:45 | RT.EKG_ITS ---
APPROVED REPORT Exam: Resting ECG Reason for Exam: sob Patient Location: E HR:80 bpm ECG Measurements Heart Rate 80 AXIS AL 127 P 14 QRSd 84 QRS 89 QT 393 T 35 QTc 454 Conclusion Sinus rhythm...normal P axis, V-rate 60- 99 Low voltage, extremity leads...all extremity leads <0.5mV No change vs 06/27/22
[2022-12-20 11:49] VITALS: BP 135/81; PULSE 84; RESP 18; TEMP 36.8; O2SAT 98
--- NOTE | 2022-12-20 12:50 | ED.GENADUL_ITS ---
Discharge Plan Disposition Patient Disposition: Home Condition: Good Discharge Details Clinical Impression: Viral upper respiratory infection Primary Care Provider: Geno Harris ED Provider: Alena Cash Home Meds and New Rx's Prescriptions: New benzonatate 200 mg capsule 200 mg PO TID PRNQty: 21 0RF Continued citalopram 40 mg tablet 60 mg PO DAILY Qty: 135 3RF vitamin B complex Tablet 1 tab PO DAILY magnesium oxide,aspartate,citr 400 mg magnesium capsule PO melatonin 5 mg capsule 10 mg PO DAILY PRN loratadine 10 mg tablet 10 mg PO DAILY cholecalciferol (vitamin D3) 25 mcg (1,000 unit) capsule 25 mcg PO DAILY ibuprofen 400 MG tablet 600 mg PO Q4H PRN PRN Discharge Instructions Instructions: Upper Respiratory Infection (ED) Additional Instructions: Stop [place] cold medicine. Try Mucinex DM for cough, Sudafed for congestion, and Zyrtec for runny nose. Use the albuterol inhaler 2 puffs every 4 hours and as needed for cough. Try the Tessalon Perles for cough as well. If this does not work you can sit in a steamed up bathroom or try hot water with lemon and honey. Return to ED for chest pain, severe difficulty breathing, fever, any other concerns Discharge Data Discharge Date/Time-TO BE ENTERED AT DEPARTURE: 12/20/22 14:01 Medical Decision Making Patient states she has been using [place] cold med that has not been helping. I have asked her to try Mucinex DM, Sudafed, Zyrtec, albuterol, and Tessalon Perles as needed. The cough is what is bothering her the most and kept her up last night. A COVID/flu/RSV swab is pending. Patient will do symptomatic and supportive care and return for difficulty breathing, severe chest pain, any other concerns. Lab Data Lab results reviewed: Yes I reviewed the patient's lab results. Lab results narrative: COVID, flu, and RSV were negative ECG Data Attestation: I personally reviewed and interpreted this ECG (s) as follows: (NSR 80, some low voltage, no change vs 06/27/22) HPI General Date/Time Provider Initiated Documentation: 12/20/22 12:05 . HPI Narrative: This 52-year-old female patient presents with a chief complaint of URI symptoms. She states that they were celebrating her dad on Wednesday. That was the anniversary of his 1 year from metastatic lung cancer to the brain. She says she had a headache in the evening but assumed it was because she was drinking a lot of alcohol that day. Several days later she began getting a scratchy throat, followed by cough, congestion, and runny nose. Headache resolved the next day. She has had no fever or chills. She has no ear pain. There is no chest pain or difficulty breathing. She denies belly pain, nausea, vomiting, diarrhea, or dysuria. She says she feels quite fatigued may be a little bit weak. There is no dizziness. She has been drinking a lot of water. Related Data Home Medications Medication Instructions Recorded Confirmed ibuprofen 400 mg tablet 600 mg PO Q4H PRN PRN 02/17/13 06/27/22 citalopram 40 mg tablet 60 mg PO DAILY #135 tabs 01/20/22 06/27/22 cholecalciferol (vitamin D3) 25 25 mcg PO DAILY 11/03/22 mcg (1,000 unit) capsule loratadine 10 mg tablet 10 mg PO DAILY 11/03/22 magnesium oxide,aspartate,citr mg PO 11/03/22 melatonin 5 mg capsule 10 mg PO DAILY PRN 11/03/22 vitamin B complex 1 tab PO DAILY 11/03/22 benzonatate 200 mg capsule 200 mg PO TID PRN #21 caps 12/20/22 Previous Rx's Medication Instructions Recorded citalopram 40 mg tablet 60 mg PO DAILY #135 tabs 01/20/22 benzonatate 200 mg capsule 200 mg PO TID PRN #21 caps 12/20/22 Allergies Allergy/AdvReac Type Severity Reaction Status Date / Time No Known Drug Allergies Allergy Verified 12/20/22 11:53 General Stated Complaint: RespSymp TONYA: 3 Review of Systems Constitutional Constitutional: Denies chills, Denies fever(s), Reports headache(s) and Denies weakness Eyes Eyes: Denies diplopia and Reports other (no redness) ENT Ears, Nose, Mouth, and Throat: Denies otalgia, Reports headache(s), Reports nasal congestion, Reports nasal discharge, Denies neck pain and Reports sore throat Cardiovascular Cardiovascular: Denies chest pain, Denies palpitations and Denies dyspnea Respiratory Respiratory: Reports cough and Denies dyspnea Gastrointestinal Gastrointestinal: Denies abdominal pain, Denies diarrhea, Denies nausea and Denies vomiting Genitourinary Genitourinary: Denies dysuria Musculoskeletal Musculoskeletal: Denies myalgias, Denies muscle weakness, Denies neck pain, Denies numbness and Reports other (edema) Integumentary/Breasts Skin/Breast: Denies change in pigmentation and Denies rash Neurologic Neurologic: Reports headache(s), Denies numbness and Denies weakness Endocrine Endocrine: Denies palpitations PFSH All Active Problems Viral upper respiratory infection (Acute) Muscle spasm (Acute) Back pain (Acute) Injury of knee, right (Acute 01/02/21) Anxiety (Chronic) Medical History Depression with anxiety Hyperlipidemia Surgical History section Family History Mother Hyperlipidemia Father Hyperlipidemia Maternal Aunt Colon cancer Social History Smoking/Tobacco Use Status: Never Smoking risk assessment performed?: Yes Alcohol Intake: current Alcohol Intake frequency: a few times a month Drug use: Never Substance use type: does not use Do you feel safe at home: Yes Do you feel safe in your relationship?: Yes History History 2 Para 2 Hx # Term Pregnancies Multiple births Hx # Pregnancies Ectopic pregnancies AB induced Hx Number of Living Children AB spontaneous Exam Const General: no acute distress, well developed, well groomed and not in acute distress Nutritional Appearance: well nourished Orientation: alert and oriented x3 HENMT Head: normocephalic and atraumatic Ears: external ears normal and TM's normal bilaterally Mouth: oropharynx normal and moist mucous membranes Throat: posterior oropharynx normal Eyes Conjunctivae: conjunctivae normal Neck Neck: full ROM, supple and no lymphadenopathy noted Chest Chest: normal inspection of the chest Resp Effort & Inspection: normal respiratory effort Auscultation: clear to auscultation bilaterally Cardio Rate: regular rate Rhythm: regular rhythm Heart Sounds: no murmurs and no rubs GI Inspection: normal to inspection Palpation: soft, nontender and other (non distended) Auscultation: normal bowel sounds Skin General skin exam: no rashes or lesions noted and other (pink, warm, dry) Neuro General: patient alert, patient awake and patient oriented x3 Speech: speech normal Motor: other (ADAME) Sensory Exam: no sensory deficits noted Extrem General: normal to inspection, full ROM and pedal edema present Psych Mental Status: mental status grossly normal Speech and Movement: speech and movement normal Affect: normal affect Course Vital Signs Vital signs: Vital Signs Temperature 36.8 C 12/20/22 11:49 Pulse 84 12/20/22 11:49 Respiratory Rate 18 12/20/22 11:49 Blood Pressure 135/81 12/20/22 11:49 Pulse Oximetry 98 12/20/22 11:49 Temperature 36.8 C 12/20/22 11:49 Temperature Source Oral 12/20/22 11:49 Pulse 84 12/20/22 11:49 Respiratory Rate 18 12/20/22 11:49 Respiratory Effort Normal, Non-Labored 12/20/22 11:55 Respiratory Depth Normal 12/20/22 11:55 Blood Pressure 135/81 12/20/22 11:49 Blood Pressure Position Sitting 12/20/22 11:49 Pulse Oximetry 98 12/20/22 11:49 Oxygen Delivery Method Room Air 12/20/22 11:49 Oxygen Flow Rate 0 12/20/22 11:49 Pain Level 0 12/20/22 11:49
[2022-12-20 13:17] LABS: COVID-19 PCR Negative (Negative); Influenza A PCR Negative (Negative); Influenza B PCR Negative (Negative); RSV PCR Negative (Negative)
[2022-12-20 13:18] LABS: Source Nasopharynx
== END 2022-12-20 14:01 | disposition home or self-care (01) ==
PROVIDERS: Emergency Provider Emergency Medicine; PCP Nurse Practitioner Family
DX: J06.9 Acute upper respiratory infection, unspecified (principal); B87.89 Myiasis of other sites; Z20.822 Contact with and (suspected) exposure to COVID-19
CPT/HCPCS: 87637; 93005; 99283; 93010

== ENCOUNTER → 2023-03-08 01:02 | Outpatient (CLI) | payer BC, SELFPAY ==
--- NOTE | 2023-03-08 12:45 | DI.MAMMO_ITS ---
Exam(s) MAMMO SCREENING EXAM: MAMMO SCREENING CLINICAL HISTORY: screening. TECHNIQUE: Bilateral full field digital CC and MLO mammographic images were obtained with 3D tomosyn thesis and utilizing computer aided detection (CAD). COMPARISON: Prior mammograms were reviewed. Prior ultrasounds reviewed. FINDINGS: There has been no significant change in the appearance and distribution of the fibroglandular tissue. No new right breast findings. In the left breast previously described nodular density is unchanged from November 2019 and therefore mos t probably benign. There are no malignant-appearing microcalcification groups in this region or elsewhere in either [address]. There is no significant architectural distortion nor skin thickening-retraction. IMPRESSION: 1. No radiographic evidence of malignancy in the right breast. 2. Stable nodular density left breast unchanged from November 2019. BI-RADS Category 2 - Benign Findings Breast Density - Category C - Heterogeneously dense Breast density Category C or D implies that the patient has dense breast tissue. Dense breast tissue can make it harder to find cancer on a mammogram. Dense breast tissue is also associated with an incr eased risk of breast cancer. This information about the result of the mammogram report was provided to the patient to raise their awareness. Use this report when you speak with the patient about their risks for breast cancer, which includes their family history. At that time, you may recommend additional screening tests (Ultrasoun d or MRI) as these tests may add significant information. A negative radiographic report should not delay biopsy if a dominant or clinically suspicious mass is present. Up to ten percent of cancers are not identified on mammography. A negative report may reinforce clinical impression. Adenosis and dense breasts may obscure an underlying neoplasm. False positive reports average 6 to 10%. Patient will receive a letter notifying them of these results.
== END ==
PROVIDERS: PCP Nurse Practitioner Family; Visit Provider Nurse Practitioner Women's Health
DX: Z12.39 Encounter for other screening for malignant neoplasm of breast (principal)
CPT/HCPCS: 77063; 77067

== ENCOUNTER 2023-03-30 11:22 | Emergency (ER) | payer BC, SELFPAY ==
[2023-03-30 11:25] VITALS: BP 171/81; PULSE 67; RESP 12; TEMP 36.7; O2SAT 99
--- NOTE | 2023-03-30 11:30 | DI.RAD_ITS ---
Exam(s) XR CHEST 2V PA LATERAL EXAM: XR CHEST 2V PA LATERAL CLINICAL HISTORY: right rib pain, injury. TECHNIQUE: 2D digital imaging was performed. COMPARISON: CR,XR XR CHEST 2V PA LATERAL from 06/27/2022 FINDINGS: 2 views: Heart size is normal. The mediastinum is not widened. Lungs are clear. No infiltrates nor pleural effusions. No obvious fractures. IMPRESSION: No acute pulmonary findings. DATA REPOSITORY: RADIATION DOSE DELIVERED:
--- NOTE | 2023-03-30 11:37 | ED.GENADUL_ITS ---
Discharge Plan Disposition Patient Disposition: Home Condition: Stable Discharge Details Chief Complaint: Chest/Rib Clinical Impression: Contusion of rib on right side Primary Care Provider: Geno Harris ED Provider: Krupa Welsh Home Meds and New Rx's Prescriptions: No Action citalopram 40 mg tablet 60 mg PO DAILY Qty: 135 3RF vitamin B complex Tablet 1 tab PO DAILY magnesium oxide,aspartate,citr 400 mg magnesium capsule PO melatonin 5 mg capsule 10 mg PO DAILY PRN loratadine 10 mg tablet 10 mg PO DAILY cholecalciferol (vitamin D3) 25 mcg (1,000 unit) capsule 25 mcg PO DAILY ibuprofen 400 MG tablet 600 mg PO Q4H PRN PRN Discharge Instructions Instructions: How to Use an Incentive Spirometer (ED), Rib Contusion (ED) Referrals: Geno Harris [Primary Care Provider] - Discharge Data Discharge Physician: Krupa Welsh Medical Decision Making 52-year-old female presents for evaluation of 3 days of right rib pain after injury. Chest x-ray negative for fracture or pneumothorax. Patient given incentive spirometer. We discussed possibility of narcotic pain medication. She declines. She will continue taking Tylenol and Motrin as needed. She understands indications to return. HPI General Date/Time Provider Initiated Documentation: 03/30/23 11:26 . HPI Narrative: 52-year-old female presents for evaluation of right lateral rib pain. Patient states that 3 days ago her was using a chainsaw and some of the wood came up and hit her in the ribs. She has had persistent pain since then. It is worse with taking a deep breath. She denies any significant cough. No history of respiratory disease. She has not had any hemoptysis. No gross hematuria. She is a non-smoker. Related Data Home Medications Medication Instructions Recorded Confirmed ibuprofen 400 mg tablet 600 mg PO Q4H PRN PRN 02/17/13 03/02/23 citalopram 40 mg tablet 60 mg (1.5 x 40 mg) PO DAILY #135 01/20/22 03/02/23 tabs cholecalciferol (vitamin D3) 25 25 mcg PO DAILY 11/03/22 03/02/23 mcg (1,000 unit) capsule loratadine 10 mg tablet 10 mg PO DAILY 11/03/22 03/02/23 magnesium oxide,aspartate,citr mg PO 11/03/22 03/02/23 melatonin 5 mg capsule 10 mg PO DAILY PRN 11/03/22 03/02/23 vitamin B complex 1 tab PO DAILY 11/03/22 03/02/23 Previous Rx's Medication Instructions Recorded citalopram 40 mg tablet 60 mg (1.5 x 40 mg) PO DAILY #135 01/20/22 tabs Allergies Allergy/AdvReac Type Severity Reaction Status Date / Time No Known Drug Allergies Allergy Verified 03/02/23 11:06 General Stated Complaint: Chest/Rib TONYA: 4 Review of Systems Narrative: Remainder of review of systems otherwise negative except for as noted in the HPI x5. PFSH All Active Problems (Updated 03/30/23 @ 12:28 by Krupa Welsh MD) Contusion of rib on right side (Acute) Ganglion cyst of volar aspect of right wrist (Acute) Muscle spasm (Acute) Back pain (Acute) Injury of knee, right (Acute 01/02/21) Anxiety (Chronic) Medical History Depression with anxiety Hyperlipidemia Surgical History section Family History Mother Hyperlipidemia Father Hyperlipidemia Maternal Aunt Colon cancer Social History Smoking/Tobacco Use Status: Never Second Hand Exposure: No Smoking risk assessment performed?: Yes Alcohol Intake: current Alcohol Intake frequency: a few times a month Drug use: Never Substance use type: does not use Sexually active: Yes Do you think of yourself as: straight/heterosexual Current gender identity: female What type of physical activity do you participate in: none Seatbelt use: always Helmet use: Yes Drive intox or ride w/intox special client bus driver: No Do you feel safe at home: Yes Do you feel safe in your relationship?: Yes Female Reproductive History Menstrual Menopause type: natural (2017) History History 2 Para 2 Hx # Term Pregnancies Multiple births Hx # Pregnancies Ectopic pregnancies AB induced Hx Number of Living Children AB spontaneous Exam Narrative Exam Narrative: General: non-toxic, no respiratory distress, comfortable HEENT: normocephalic, atraumatic, lids and lashes normal, PERRL, EOMI, anicteric sclera, no conjunctival injection, moist oral mucosa Card: regular rate and rhythm, S1S2, no murmurs, rubs, or gallops Lungs: good air entry, clear to auscultation bilaterally. no wheezes, rales, rhonchi, or retractions, pain to palpation right lateral ribs without crepitus Abd: soft, non-tender, non-distended, normal bowel sounds, no rebound or guarding, no peritoneal signs, no CVAT Musculoskeletal: No vertebral tenderness, full range of motion of arms and legs, no tenderness to palpation. no clubbing, cyanosis, or edema Neurologic: appropriate for age, strength normal Psych: alert and oriented Skin: no petechiae, no lesions, warm and dry Course Vital Signs Vital signs: Vital Signs Temperature 36.7 C 03/30/23 11:25 Pulse 67 03/30/23 11:25 Respiratory Rate 12 03/30/23 11:25 Blood Pressure 171/81 H 03/30/23 11:25 Pulse Oximetry 99 03/30/23 11:25 Temperature 36.7 C 03/30/23 11:25 Temperature Source Tympanic 03/30/23 11:25 Pulse 67 03/30/23 11:25 Respiratory Rate 12 03/30/23 11:25 Respiratory Effort Normal 03/30/23 11:28 Respiratory Depth Normal 03/30/23 11:28 Respiratory Pattern Normal 03/30/23 11:28 Blood Pressure 171/81 H 03/30/23 11:25 Blood Pressure Position Sitting 03/30/23 11:25 Pulse Oximetry 99 03/30/23 11:25 Oxygen Delivery Method Room Air 03/30/23 11:25 Oxygen Flow Rate 0 03/30/23 11:25 Pain Level 1 03/30/23 11:28 Comment Deep breath, sneeze, or anything else pain goes to a 9 out of 10 03/30/23 11:25 PAWSS Have you Been Recently Intoxicated or Drunk Within the Last 30 days?: No Result: 0
== END 2023-03-30 12:55 | disposition home or self-care (01) ==
PROVIDERS: Emergency Provider Emergency Medicine Emergency Medical Services; PCP Nurse Practitioner Family
DX: S20.211A Contusion of right front wall of thorax, initial encounter (principal); W20.8XXA Other cause of strike by thrown, projected or falling object, initial encounter; Y93.H2 Activity, gardening and landscaping; Y92.017 Garden or yard in single-family (private) house as the place of occurrence of the external cause; Y99.9 Unspecified external cause status
CPT/HCPCS: 99283; 71046; 99282

== ENCOUNTER 2023-04-07 06:15 | Day surgery (SDC) | payer BC, SELFPAY ==
[2023-04-07 06:23] VITALS: BP 119/80; PULSE 78; RESP 16; TEMP 36.6; O2SAT 98
--- NOTE | 2023-04-07 07:07 | W.ANESPRE ---
General Info Date of Service Date Performed: 04/07/23 Height: 5 ft 4 in Weight: 75.8 kg Body Mass Index (BMI): 28.6 Surgical Procedure: Operation Date: 04/07/23 07:40 Proposed Procedure Side Surgeon p Wrist Volar Cyst Excision Right Gaurang Keller MD Meds Allergies and Home Medications Allergies Allergy/AdvReac Type Severity Reaction Status Date / Time No Known Drug Allergies Allergy Verified 04/07/23 06:49 Home Medication Medication Instructions Recorded citalopram 40 mg tablet 60 mg (1.5 x 40 mg) PO DAILY #135 01/20/22 tabs cholecalciferol (vitamin D3) 25 25 mcg PO DAILY 11/03/22 mcg (1,000 unit) capsule loratadine 10 mg tablet 10 mg PO DAILY 11/03/22 magnesium oxide,aspartate,citr 400 mg PO DAILY 11/03/22 melatonin 5 mg capsule 10 mg PO DAILY PRN 11/03/22 vitamin B complex 1 tab PO DAILY 11/03/22 acetaminophen 500 mg tablet 1,000 mg (2 x 500 mg) PO TID #90 04/07/23 tabs hydrocodone 5 mg-acetaminophen 325 1 tab PO Q6H PRN pain #6 tabs 04/07/23 mg tablet ibuprofen 600 mg tablet 600 mg PO TID PRN pain #90 tabs 04/07/23 Current Visit Medications: Current Medications Generic Name Dose Route Start Last Admin Trade Name Freq PRN Reason Stop Dose Admin Ringer's Solution 1,000 mls @ 80 mls/hr 04/07/23 06:00 IV 05/06/23 23:59 INFUSION IRA Cefazolin Sodium/Dextrose 2 gm in 50 mls @ 100 mls/hr 04/07/23 06:00 Ancef Duplex IVPB 05/06/23 23:59 PREOP IRA IV Miscellaneous Supplies 1 each 04/07/23 06:00 Iv Access IV 05/06/23 23:59 DIRECTED IRA Sodium Chloride 0 ml 04/07/23 06:00 Normal Saline Flush 10 Ml Syr IV 05/06/23 23:59 PRN PRN Sodium Chloride 0 ml 04/07/23 06:00 Normal Saline 10 Ml Vial IJ 05/06/23 23:59 DIRECTED PRN Sterile Water 0 ml 04/07/23 06:00 Water,Injection,Sterile 10 Ml Vial IJ 05/06/23 23:59 DIRECTED PRN PFSH Active Problems Active Problems: Problem Status Onset Code Contusion of rib on right side S20.211A Ganglion cyst of volar aspect of right wrist M67.431 Muscle spasm M62.838 Back pain M54.9 Injury of knee, right 01/02/21 S89.91XA Anxiety F41.9 Medical History Medical History Depression with anxiety Hyperlipidemia Surgical History Surgical History section Tobacco Smoking/Tobacco Use Status: Never Second hand exposure: No Alcohol Alcohol Intake: current Alcohol intake frequency: a few times a month Substance Use Substance use: Never Substance use type: does not use Prental History History 2 Para 2 Hx # Term Pregnancies Multiple births Hx # Pregnancies Ectopic pregnancies AB induced Hx Number of Living Children AB spontaneous Vital Signs and Lab Results Vital Signs Most Recent Vital Signs in EMR: Most Recent Vital Signs Temp Pulse Resp BP Pulse Ox 36.6 C 78 16 119/80 98 04/07/23 06:23 04/07/23 06:23 04/07/23 06:23 04/07/23 06:23 04/07/23 06:23 Point of Care Results Point of Care Results: POC- Test(urine) Negative 04/07/23 07:05 Lab Results Blood Type / Crossmatch: No Data to Display Complete Blood Count: No Data to Display Complete Metabolic Panel: No Data to Display Liver Function Panel: No Data to Display Coagulation Panel: No Data to Display Cardiac Panel: No Data to Display Arterial Blood Gas: No Data to Display Venous Blood Gas: No Data to Display Pancreas Panel: No Data to Display Thyroid Panel: No Data to Display Infectious Disease: No Data to Display Blood Cultures: No Data to Display Toxicology Panel: No Data to Display Panel: No Data to Display Imaging and Studies Imaging and Studies Study information below may be from another EMR and interpreted by another provider. Please see original notes in EMR for more complete details. EKG Summary: 12/20/2022: Exam: Resting ECG Reason for Exam: sob Patient Location: E HR:80 bpm ECG Measurements Heart Rate 80 AXIS NJ 127 P 14 QRSd 84 QRS 89 QT 393 T35 QTc 454 Conclusion Sinus rhythm...normal P axis, V-rate 60- 99 Low voltage, extremity leads...all extremity leads <0.5mV No change vs 06/27/22 Stress Test Summary: 07/13/2022: Clinical Reason for Termination: Fatigue, Dyspnea Stress Symptoms: Leg Fatigue, Dyspnea Exercise duration: 6 min27 sec Highest Stage Reached: Stage 3: 3.4 mph at 14% grade. Exercise capacity: 7.74 METs Ascencio Treadmill Score: 5.3 Rate Pressure Product: 72098 Stress ECG Conclusion 1. Resting electrocardiogram showed right axis deviation 2. Patient exercised on the Jon protocol and completed a workload of 7.74 METS 3. Normal heart rate and blood pressure response to exercise. Patient achieved greater than 100% of predicted heart rate for age 4. There was no electrocardiographic evidence of myocardial ischemia 5. There were no significant dysrhythmias Ascencio Treadmill Score is 5.3 which is Low risk. Anesthesia Assessment and Plan Anesthesia History Personal History: No History of Anesthesia Complications Family History: No Family History of Anesthesia Complications Exercise Tolerance Exercise Tolerance: Metabolic Equivalents>4 Pertinent Negatives Pertinent Negatives: No Symptoms of GERD, No Major Cardiovascular Symptoms or Complaints and No Major Pulmonary Symptoms or Complaints Cardiac & Pulmonary Exam Cardiac Exam: Normal S1/S2 Heart Sounds Pulmonary Exam: Clear Bilateral Breath Sounds Implantable Cardiac Device Does patient have a Pacemaker or an ICD?: No Airway Exam Known Difficult Airway: No Mallampati Class: 3 Mouth Opening: Narrow (< 3cm) Thyromental Distance: Greater than 3 cm Neck Range of Motion: Full ROM Neck Circumference: Normal Teeth Condition: Normal Dentition ASA Classification ASA Score: ASA 2 Emergency Case?: No NPO Status NPO Status: NPO Clears >2 hours, Solids >8 hours Status Status: Negative HCG Anesthesia Plan Resuscitation Status: Full Code Anesthesia Technique: General Anesthesia Airway Planned: Natural Airway Monitors Used: Standard Monitors
[2023-04-07 07:10] VITALS: BMI 28.6
--- NOTE | 2023-04-07 07:12 | PDOC.DSDIS_ITS ---
Date of service: 04/07/23 Time of Service: 07:12 Discharge Plan Disposition Patient Disposition: Home Condition: Good Discharge Details Reason For Visit: Excision cyst R wrist Attending Provider: Gaurang Keller Primary Care Provider: Geno Harris Home Meds and New Rx's Prescriptions: New acetaminophen 500 mg tablet 1,000 mg PO TID Qty: 90 0RF hydrocodone-acetaminophen 5-325 mg tablet 1 tab PO Q6H PRN (Reason: pain) Qty: 6 0RF ibuprofen 600 mg tablet 600 mg PO TID PRN (Reason: pain) Qty: 90 0RF Continued citalopram 40 mg tablet 60 mg PO DAILY Qty: 135 3RF vitamin B complex Tablet 1 tab PO DAILY magnesium oxide,aspartate,citr 400 mg magnesium capsule 400 mg PO DAILY melatonin 5 mg capsule 10 mg PO DAILY PRN loratadine 10 mg tablet 10 mg PO DAILY cholecalciferol (vitamin D3) 25 mcg (1,000 unit) capsule 25 mcg PO DAILY Discontinued ibuprofen 400 MG tablet 600 mg PO Q4H PRN PRN Discharge Instructions Additional Instructions: Wrist Cyst Excision Discharge Instructions Activity: You should keep the hand/wrist elevated as much as possible for the first few days. You may use the other fingers as tolerated but avoid trying to do too much too soon. You may perform light activities with the splint in place. Dressing/Cast: Your splint should stay in place at all times. Do NOT get it wet. You may loosen the BRYANT wrap if you feel it is too tight and then rewrap more loosely. Medications: - You should take Tylenol and [Ibuprofen] for baseline pain control. - You have been prescribed a stronger pain medication, Hydrocodone, for breakthrough pain. - You may apply ice over the wrist, just double bag so it doesn't get wet. Follow-up: 10-14 days Referrals: Gaurang Keller MD [ [facility] STAFF PHYSICIAN] - Activity:: Elevate Remove Dressings/Wound Care:: Do Not Remove Shower/Bathe:: Cover Diet:: As Tolerated Discharge Orders Discharge Orders: Discharge Order (Routine); Ordered 04/07/23 Ordered By: Pelon Potts DS: Diagnosis Discharge Diagnosis (1) Ganglion cyst of volar aspect of right wrist: Status: Acute
--- NOTE | 2023-04-07 07:13 | HPE_ITS ---
Assessment and Plan Assessment and plan (1) Ganglion cyst of volar aspect of right wrist: Status: Acute Assessment and plan: Cleopatra is a 52-year-old female who has a volar wrist cyst. It has persisted despite giving it time. It does cause pain and interferes with daily activities. Therefore, I did offer an excision of the right wrist. I reviewed the technical details of the surgery. I discussed the necessary time for rehabilitation. I reviewed the risk to include bleeding, infection, pain, stiffness, damage to nerves and vessels. Despite these risk, she elects to proceed. History of Present Illness History of Present Illness Chief Complaint: Right Volar Wrist Cyst Narrative: Cleopatra is a 52-year-old female who continues to have symptoms about the right wrist. She has a large volar wrist cyst. It has not gone down in size. It gets in the way of daily activities. She is here today for excision. Please see the previous office note for complete detailed history. Review of Systems All systems reviewed & are unremarkable except as noted in HPI and below PFSH All Active Problems Contusion of rib on right side (Acute) Ganglion cyst of volar aspect of right wrist (Acute) S/P Excision: 04/07/2023 Muscle spasm (Acute) Back pain (Acute) Injury of knee, right (Acute 01/02/21) Anxiety (Chronic) Medical History Depression with anxiety Hyperlipidemia Surgical History section Family History Mother Hyperlipidemia Father Hyperlipidemia Maternal Aunt Colon cancer Social History Smoking/Tobacco Use Status: Never Second Hand Exposure: No Smoking risk assessment performed?: Yes Alcohol Intake: current Alcohol Intake frequency: a few times a month Drug use: Never Substance use type: does not use Housing: house Sexually active: Yes Do you think of yourself as: straight/heterosexual Current gender identity: female What type of physical activity do you participate in: none Seatbelt use: always Helmet use: Yes Drive intox or ride w/intox concrete mixing truck driver: No Do you feel safe at home: Yes Do you feel safe in your relationship?: Yes Female Reproductive History Menstrual Menopause type: natural (2018) History History 2 Para 2 Hx # Term Pregnancies Multiple births Hx # Pregnancies Ectopic pregnancies AB induced Hx Number of Living Children AB spontaneous Meds Allergies and Home Medications Allergies Allergy/AdvReac Type Severity Reaction Status Date / Time No Known Drug Allergies Allergy Verified 04/07/23 06:49 Home Medications Medication Instructions Recorded Confirmed Type citalopram 40 mg tablet 60 mg (1.5 x 40 mg) PO DAILY #135 01/20/22 04/07/23 Rx tabs cholecalciferol (vitamin D3) 25 25 mcg PO DAILY 11/03/22 04/07/23 History mcg (1,000 unit) capsule loratadine 10 mg tablet 10 mg PO DAILY 11/03/22 04/07/23 History magnesium oxide,aspartate,citr 400 mg PO DAILY 11/03/22 04/07/23 History melatonin 5 mg capsule 10 mg PO DAILY PRN 11/03/22 04/07/23 History vitamin B complex 1 tab PO DAILY 11/03/22 04/07/23 History acetaminophen 500 mg tablet 1,000 mg (2 x 500 mg) PO TID #90 04/07/23 Rx tabs hydrocodone 5 mg-acetaminophen 325 1 tab PO Q6H PRN pain #6 tabs 04/07/23 Rx mg tablet ibuprofen 600 mg tablet 600 mg PO TID PRN pain #90 tabs 04/07/23 Rx Exam Resp Auscultation: clear to auscultation bilaterally Cardio Rate: regular rate Rhythm: regular rhythm Extrem Other: Rounded and well-circumscribed cyst about the volar right wrist, ulnar to the FCR. No overlying skin changes. Palpable radial pulse. Sensation intact to light touch of the median, radial, ulnar nerve. Results Last Vital Signs Temp 36.6 C 04/07/23 06:23 Pulse 78 04/07/23 06:23 Resp 16 04/07/23 06:23 BP 119/80 04/07/23 06:23 Pulse Ox 98 04/07/23 06:23
[2023-04-07] MEDS: Lactated Ringers 1,000 ML 80 ML IV (07:28)
[2023-04-07] MEDS: ceFAZolin 2 GM/50 ML BAG IVPB (07:34)
[2023-04-07] MEDS: Lidocaine 1% Multi-Dose W/EPI 1/100,000 50 ML VIAL (08:08)
[2023-04-07 08:20] VITALS: BP 135/73; PULSE 82; RESP 16; TEMP 36.2; O2SAT 94
--- NOTE | 2023-04-07 08:21 | W.PM.OP ---
Date of service: 04/07/23 Time of Service: 07:35 Operative Note Operative Note DATE OF PROCEDURE: 04/07/23 PRE-OP DIAGNOSIS: Right Volar Wrist Ganglion Cyst POST-OP DIAGNOSIS: same PROCEDURE: Excision of volar wrist ganglion cyst - Right wrist SURGEON: Gaurang Keller ANESTHESIA TYPE: Local By Surgeon and General:No Airway Refer to Anesthesia Record ESTIMATED BLOOD LOSS: 10 PATHOLOGY: none sent TOURNIQUET TIME: 13 COMPLICATIONS: Other (There is a small sidewall injury to the radial artery identified and repaired with a 6-0 nylon without other complication.) Patient was transported to: PACU Patient's condition: stable Indications: Cleopatra is a 52 year old female who I have seen for a volar wrist ganglion cyst. It has continued to be bothersome despite some conservative options. Its size and interference with activities continues to cause problems. Therefore, I offered excision of the volar wrist cyst. I discussed the risks to include bleeding, infection, pain, stiffness, damage to nerve and vessels, recurrence. Despite these risks, she elects to proceed. Findings: There is a large volar wrist cyst arising on the radial side of the radial artery, grossly adherent to the artery. A subtle injury to the radial artery was encountered and repaired. The cyst was removed and arthrotomy performed. Procedure Description: Cleopatra was greeted in the preoperative holding area. Identity was confirmed and the correct site was identified and marked. Consent was reviewed the patient and signed. History and physical was updated. The patient to take not to the operating room placed in supine position. All bony prominences were well-padded. A nonsterile tourniquet was placed high up onto the right arm. The arms and prepped with ChloraPrep and draped in a standard fashion. The surgical site was marked on the skin and injected with 1% lidocaine with epinephrine. The skin was incised sharply. Deeper dissection was carried out with tenotomy scissors and careful attention to vascular branches in this area. The mass was identified and protected with dissection carried around. Once was fully identified it was deflated and the cyst stalk was followed down to the carpus. The ulnar side of the cyst wall was significantly adhered to the radial artery. In trying to free the cyst wall from the radial artery there was immediate bleeding. This appeared to be coming from the artery. Thus, the limb was exsanguinated and the tourniquet was inflated to 250 mmHg where it stayed for 13 minutes. Further evaluation showed a small sidewall injury. I was able to identify the injury and placed a single 6-0 nylon suture across it. The tourniquet was deflated and there was no active bleeding. The remaining cyst structure was resected and its origin from the carpus was opened with tenotomy scissors and rongeur. The wound was then thoroughly irrigated. The wound was dry. The deep layer was reapproximated with a 3-0 Vicryl. The skin was closed with a running 4-0 Monocryl followed by skin glue, gauze, and Toni wrap. She was then placed into a short arm splint. All fingers were warm and well-perfused. At the end the case all counts were correct. The patient was awakened from anesthesia and taken to the PACU in stable condition.
[2023-04-07 08:48] VITALS: BP 135/72; PULSE 785; RESP 16; TEMP 36.2; O2SAT 96
--- NOTE | 2023-04-07 09:25 | W.ANESPOSTOP ---
Postoperative Evaluation Date, Time and Location Date Performed: 04/07/23 Time Performed: 08:55 Patient Location: Day Surgery Unit Vital Signs Most Recent Imported Vital Signs: Most Recent Vital Signs Temp Pulse Resp BP Pulse Ox 36.2 C L 785 H 16 135/72 96 04/07/23 08:48 04/07/23 08:48 04/07/23 08:48 04/07/23 08:48 04/07/23 08:48 Pain Score Most Recent Pain Score: Most Recent Pain Score Pain Level 0 04/07/23 08:48 Assessment Mental Status: Awake (Alert & Oriented to Patient Baseline) Airway and Respiratory Function: Patent airway with normal (patient baseline) respiratory exam Cardiovascular Function: Hemodynamically Stable Hydration Status: Adequately Hydrated Nausea & Vomiting: No Nausea or Vomiting Pain: Pt. Denies Any Pain Peripheral Nerve Block: Patient did not receive a nerve block
== END 2023-04-07 10:00 | disposition home or self-care (01) ==
PROVIDERS: PCP Nurse Practitioner Family; Visit Provider Student in an Organized Health Care Education/Training Program
PROC: (CPT 25111; principal; 2023-04-07 07:30)
DX: M67.431 Ganglion, right wrist (principal)
CPT/HCPCS: 25111; 00123; 81025; J0690; J1100; J1885; J2001; J2250; J2405; J3010

== ENCOUNTER 2023-06-19 12:51 | Emergency (ER) | payer BC, SELFPAY ==
[2023-06-19 12:57] VITALS: BP 134/80; PULSE 111; RESP 16; TEMP 36.2; O2SAT 98
[2023-06-19] MEDS: Albuterol/Ipratropium 3 ML UPD VIAL UPD (14:08)
[2023-06-19] MEDS: Benzonatate 100 MG CAP PO (14:08)
[2023-06-19 15:00] LABS: COVID-19 PCR Negative (Negative); Influenza A PCR Positive (Negative); Influenza B PCR Negative (Negative); RSV PCR Negative (Negative)
[2023-06-19 15:02] LABS: Source Nasopharynx
--- NOTE | 2023-06-19 15:17 | ED.GENADUL_ITS ---
HPI General Stated Complaint: RespSymp Mode of arrival: ambulatory. TONYA: 3 Date/Time Provider Initiated Documentation: 06/19/23 13:36. Limitations to Documentation: no limitations. Information obtained by: patient and RN notes reviewed. History of Present Illness Cold symptoms day(s) (3) constant No relieving factors improve symptom(s), other ([id number]-[id number] meds) Related Data Home Medications Medication Instructions Recorded Confirmed cholecalciferol (vitamin D3) 25 25 mcg PO DAILY 11/03/22 04/07/23 mcg (1,000 unit) capsule loratadine 10 mg tablet 10 mg PO DAILY 11/03/22 04/07/23 magnesium oxide,aspartate,citr 400 mg PO DAILY 11/03/22 04/07/23 melatonin 5 mg capsule 10 mg PO DAILY PRN 11/03/22 04/07/23 vitamin B complex 1 tab PO DAILY 11/03/22 04/07/23 acetaminophen 500 mg tablet 1,000 mg (2 x 500 mg) PO TID #90 04/07/23 04/15/23 tabs ibuprofen 600 mg tablet 600 mg PO TID PRN pain #90 tabs 04/07/23 citalopram 40 mg tablet 60 mg (1.5 x 40 mg) PO DAILY #135 04/16/23 tabs albuterol sulfate 90 mcg/actuation 1 - 2 puff inhalation Q6H PRN 06/19/23 aerosol inhaler shortness of breath or wheezing #6.7 grams benzonatate 200 mg capsule 200 mg PO TID PRN cough #30 caps 06/19/23 Previous Rx's Medication Instructions Recorded acetaminophen 500 mg tablet 1,000 mg (2 x 500 mg) PO TID #90 04/07/23 tabs ibuprofen 600 mg tablet 600 mg PO TID PRN pain #90 tabs 04/07/23 citalopram 40 mg tablet 60 mg (1.5 x 40 mg) PO DAILY #135 04/16/23 tabs albuterol sulfate 90 mcg/actuation 1 - 2 puff inhalation Q6H PRN 06/19/23 aerosol inhaler shortness of breath or wheezing #6.7 grams benzonatate 200 mg capsule 200 mg PO TID PRN cough #30 caps 06/19/23 Allergies Allergy/AdvReac Type Severity Reaction Status Date / Time No Known Drug Allergies Allergy Verified 04/15/23 08:24 Review of Systems Constitutional Constitutional: Reports body ache(s), Reports chills, Reports fever(s), Reports headache(s) and Reports malaise Eyes Eyes: Denies eye discharge ENT Ears, Nose, Mouth, and Throat: Reports as per HPI, Denies ear discharge, Denies otalgia, Reports headache(s), Reports nasal congestion, Reports sinus pain, Reports sore throat and Denies throat swelling Cardiovascular Cardiovascular: Denies chest pain and Denies dyspnea Respiratory Respiratory: Reports cough and Denies dyspnea Musculoskeletal Musculoskeletal: Denies joint swelling Integumentary/Breasts Skin/Breast: Denies rash Neurologic Neurologic: Reports headache(s) Allergic/Immunologic Allergic/Immunologic: Denies throat swelling PFSH All Active Problems (Updated 06/19/23 @ 15:18 by Ady Rodríguez NP) Influenza A (Acute) Ganglion cyst of volar aspect of right wrist (Acute) S/P Excision: 04/07/2023 Muscle spasm (Acute) Back pain (Acute) Injury of knee, right (Acute 01/02/21) Anxiety (Chronic) Medical History Depression with anxiety Hyperlipidemia Surgical History section Family History Mother Hyperlipidemia Father Hyperlipidemia Maternal Aunt Colon cancer Social History Smoking/Tobacco Use Status: Never Second Hand Exposure: No Smoking risk assessment performed?: Yes Alcohol Intake: current Alcohol Intake frequency: a few times a month Drug use: Never Substance use type: does not use Housing: house Sexually active: Yes Do you think of yourself as: straight/heterosexual Current gender identity: female What type of physical activity do you participate in: none Seatbelt use: always Helmet use: Yes 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 Do you feel safe at home: Yes Do you feel safe in your relationship?: Yes Female Reproductive History Menstrual Menopause type: natural (2018) History History 2 Para 2 Hx # Term Pregnancies Multiple births Hx # Pregnancies Ectopic pregnancies AB induced Hx Number of Living Children AB spontaneous Exam Const General: cooperative, comfortable and no acute distress Orientation: alert and awake HENMT Head: normal to inspection, normocephalic and atraumatic Ears: hearing grossly normal bilaterally and TM's normal bilaterally General nose exam: external nose normal Face and sinus: no erythema Mouth: oral mucosae normal, no drooling, no muffled voice and no trismus Throat: posterior oropharynx normal Neck Neck: normal visual inspection, full ROM, no lymphadenopathy, no meningeal signs, trachea midline and supple Resp Effort & Inspection: normal respiratory effort, able to speak in complete sentences and cough Quality of cough: dry Auscultation: clear to auscultation bilaterally Cardio Rate: tachycardic Rhythm: regular rhythm Heart Sounds: S1 normal and S2 normal Skin General skin exam: no rashes or lesions noted and dry skin (warm) Neuro General: patient alert, patient awake, patient oriented x3, gait normal and moves all extremities Cognition: normal cognition Speech: speech normal Course Vital Signs Vital signs: Vital Signs Temperature 36.2 C L 06/19/23 12:57 Pulse 111 H 06/19/23 12:57 Respiratory Rate 16 06/19/23 12:57 Blood Pressure 134/80 06/19/23 12:57 Pulse Oximetry 98 06/19/23 12:57 Temperature 36.2 C L 06/19/23 12:57 Temperature Source Temporal Artery Scan 06/19/23 12:57 Pulse 111 H 06/19/23 12:57 Respiratory Rate 16 06/19/23 12:57 Blood Pressure 134/80 06/19/23 12:57 Pulse Oximetry 98 06/19/23 12:57 Oxygen Delivery Method Room Air 06/19/23 12:57 Oxygen Flow Rate 0 06/19/23 12:57 Pain Level 0 06/19/23 12:57 Lab/Test Results Lab/Test Results: Laboratory Tests Range/Units 06/19/23 14:10 COVID-19 Source Nasopharynx SARS-CoV-2 (PCR) (Negative) Negative Influenza Type A (PCR) (Negative) Positive A Influenza Type B (PCR) (Negative) Negative RSV (PCR) (Negative) Negative Medical Decision Making Patient presenting to the clinic for chief complaint of cold symptoms. Patient reports symptoms have been going on for the past 3 days. reports fever, headache, body aches , nasal congestion, and cough. Physical exam shows normal HEENT exam, intermittent dry cough, mild tachycardia, otherwise clear lung sounds and otherwise unremarkable exam. Patient not hypotensive tachypneic or hypoxic with no fever noted on review of vital signs. Patient has no signs of meningitis, peritonsillar abscess, retropharyngeal abscess, Isreal's angina, or life-threatening Airway infection. COVID flu RSV testing performed and pending results patient given DuoNeb and Tessalon Perle. Reviewed results and patient is positive for flu A. Patient did state improvement with inhaler so we will prescribe inhaler and Tessalon Perles otherwise recommended conservative management and discussed along with follow- up and return precautions. After discussion of diagnosis and plan of care patient has no further needs, questions, or concerns and states clear understanding to return to the emergency department for any worsening symptoms. This documentation was generated using VOSS dictation system, please disregard any oddities of phrase or misspellings. Lab Data Lab results reviewed: Yes I reviewed the patient's lab results. Quality:SDOH Health Related Social Needs: No Data to Display Discharge Plan Disposition Patient Disposition: Home Discharge Details Clinical Impression: Influenza A Primary Care Provider: Geno Harris ED Provider: Ady Rodríguez Home Meds and New Rx's Prescriptions: New benzonatate 200 mg capsule 200 mg PO TID PRN (Reason: cough) Qty: 30 0RF albuterol sulfate 90 mcg/actuation HFA aerosol inhaler 1 - 2 puff inhalation Q6H PRN (Reason: shortness of breath or wheezing) Qty: 6.7 0RF Continued vitamin B complex Tablet 1 tab PO DAILY magnesium oxide,aspartate,citr 400 mg magnesium capsule 400 mg PO DAILY melatonin 5 mg capsule 10 mg PO DAILY PRN loratadine 10 mg tablet 10 mg PO DAILY cholecalciferol (vitamin D3) 25 mcg (1,000 unit) capsule 25 mcg PO DAILY citalopram 40 mg tablet 60 mg PO DAILY Qty: 135 1RF acetaminophen 500 mg tablet 1,000 mg PO TID Qty: 90 0RF ibuprofen 600 mg tablet 600 mg PO TID PRN (Reason: pain) Qty: 90 0RF Discharge Instructions Instructions: Influenza (ED) Additional Instructions: You may continue to take [id number] medication as needed and stay well- hydrated. Return to the emergency department for any new or significant worsening of symptoms otherwise get plenty of rest and follow-up with primary care provider if not improving in the next week Referrals: Geno Harris [Primary Care Provider] - (As needed for reassessment) Discharge Data Discharge Date/Time-TO BE ENTERED AT DEPARTURE: 06/19/23 15:27
[2023-06-19 15:25] VITALS: PULSE 86; RESP 18; O2SAT 99
== END 2023-06-19 15:27 | disposition home or self-care (01) ==
PROVIDERS: Emergency Provider Nurse Practitioner Family; PCP Nurse Practitioner Family
DX: R09.81 Nasal congestion; R50.9 Fever, unspecified; J10.89 Influenza due to other identified influenza virus with other manifestations; R05.1 Acute cough; R52 Pain, unspecified; R53.81 Other malaise
CPT/HCPCS: 87637; 94640; 99283; J7620

== ENCOUNTER 2024-03-13 11:37 | Outpatient (REF) | payer BC, SELFPAY ==
--- NOTE | 2024-03-13 11:20 | PAPFT_PTH ---
PATIENT: Cleopatra Thornton LOC: [facility] U#:[id number] AGE/SX: 53/F ROOM: RE03/13/[address]: Dina Gonzalez NP : 1970 BED: DIS: 03/13/2024 SPEC #: [id number] RECD: 03/13/24 13:03 STATUS: STEVE REJessa #: [id number] PATRIC: 03/13/24 11:[address]: Dina Gonzalez NP DEPT: [facility] Cytology RECD BY: Sridevi Cedillo ENTERED: 03/13/24 13:03 SP TYPE: PAPFT OTHR DR: Geno Harris Tissues: 1 - CX/ENDOCX FOR PAP SMEARS Procedures: PAP THIN PREP/UVM Screening HPV DNA PROBE Comments: [id number] (HPV 16 & 18/45)
== END 2024-03-13 11:38 | disposition home or self-care (01) ==
LOC: LBN 11:37
PROVIDERS: PCP Nurse Practitioner Family; Visit Provider Nurse Practitioner Women's Health
DX: Z12.39 Encounter for other screening for malignant neoplasm of breast (principal); Z01.419 Encounter for gynecological examination (general) (routine) without abnormal findings; Z12.4 Encounter for screening for malignant neoplasm of cervix; Z12.31 Encounter for screening mammogram for malignant neoplasm of breast
CPT/HCPCS: 88142; 87624

== ENCOUNTER 2024-03-23 01:10 | Outpatient (CLI) | payer BC, SELFPAY ==
--- NOTE | 2024-03-23 11:45 | DI.MAMMO_ITS ---
Exam(s) MAMMO SCREENING EXAM: MAMMO SCREENING CLINICAL HISTORY: SCREENING, Z12.39. TECHNIQUE: Bilateral full field digital CC and MLO mammographic images were obtained with 3D tomosyn thesis and utilizing computer aided detection (CAD). COMPARISON: Prior mammograms were reviewed. FINDINGS: There has been no significant change in the appearance and distribution of the fibroglandular tissue. Benign-appearing nodular density at 6 o'clock position of the left breast is unchanged from prior ab mograms dating back to at least 2017. Benign. There are no new spiculated masses nor malignant appearing microcalcification groups. There is no significant architectural distortion nor skin thickening-retraction. IMPRESSION: Stable benign findings. No radiographic evidence of malignancy. BI-RADS Category 2 - Benign Findings Breast Density - Category C - Heterogeneously dense Breast density Category C or D implies that the patient has dense breast tissue. Dense breast tissue can make it harder to find cancer on a mammogram. Dense breast tissue is also associated with an incr eased risk of breast cancer. This information about the result of the mammogram report was provided to the patient to raise their awareness. Use this report when you speak with the patient about their risks for breast cancer, which includes their family history. At that time, you may recommend additional screening tests (Ultrasoun d or MRI) as these tests may add significant information. A negative radiographic report should not delay biopsy if a dominant or clinically suspicious mass is present. Up to ten percent of cancers are not identified on mammography. A negative report may reinforce clinical impression. Adenosis and dense breasts may obscure an underlying neoplasm. False positive reports average 6 to 10%. Patient will receive a letter notifying them of these results.
== END 2024-03-23 01:30 ==
LOC: DI 01:10
PROVIDERS: PCP Nurse Practitioner Family; Visit Provider Nurse Practitioner Women's Health
DX: Z12.31 Encounter for screening mammogram for malignant neoplasm of breast (principal)
CPT/HCPCS: 77063; 77067

== ENCOUNTER 2025-03-26 02:43 | Outpatient (CLI) | payer BC, SELFPAY ==
--- NOTE | 2025-03-26 15:45 | DI.MAMMO_ITS ---
Exam(s) MAMMO SCREENING EXAM: MAMMO SCREENING CLINICAL HISTORY: screening TECHNIQUE: Mammograms were interpreted according to the usual protocol including computer analysis with CAD system, tomosynthesis and C-view imaging. COMPARISON: 2016 through 2023 FINDINGS: The breasts are composed of heterogeneously dense fibroglandular densities, Breast Density category C. No suspicious masses or suspicious microcalcifications are seen. No skin thickening or abnormal axillary lymph nodes are seen. There has been no significant change from prior exams. IMPRESSION: BI-RADS Category 1, Negative mammogram. Yearly screening mammography is recommended. Breast Density: Category C - The breasts are heterogeneously dense, which may obscure small masses. Breast density Category C or D implies that the patient has dense breast tissue. Dense breast tissue can make it harder to find cancer on a mammogram. Dense breast tissue is also associated with an increased risk of breast cancer. This information about the result of the mammogram report was provided to the patient to raise their awareness. Use this report when you speak with the patient about their risks for breast cancer, which includes their family history. At that time, you may recommend additional screening tests (Ultrasound or MRI) as these tests may add significant information. A negative radiographic report should not delay biopsy if a dominant or clinically suspicious mass is present. Up to ten percent of cancers are not identified on mammography. A negative report may reinforce clinical impression. Adenosis and dense breasts may obscure an underlying neoplasm. False positive reports average 6 to 10%.
== END 2025-03-26 03:03 ==
LOC: DI 02:43
PROVIDERS: PCP Nurse Practitioner Family; Visit Provider Nurse Practitioner Women's Health
DX: Z12.31 Encounter for screening mammogram for malignant neoplasm of breast (principal); R92.323 Mammographic fibroglandular density, bilateral breasts; R92.333 Mammographic heterogeneous density, bilateral breasts
CPT/HCPCS: 77063; 77067